=== PATIENT | male | born 1965 | race Caucasian/White ===

== ENCOUNTER 2019-07-22 08:32 | Emergency (ER) | payer BC ==
--- NOTE | 2019-07-22 10:02 | EDPHYS ---
Physician Documentation [facility] Name: Joey Spaulding Age: 54 yrs Sex: Male : 1965 Arrival Date: 07/22/2019 Time: 08:33 Bed 18 Private MD: ED Physician Ken Uribe HPI: 07/22 09:40 This 54 yrs old Male presents to ER via Ambulatory with complaints of Leg kb Pain. 09:40 The patient presents with pain, swelling, tenderness. The complaints affect the left kb foot. Context: The problem was sustained at home, the patient can fully bear weight, the patient is able to ambulate. Onset: The symptoms/episode began/occurred this morning. Modifying factors: The symptoms are alleviated by nothing, the symptoms are aggravated by weight bearing. Associated signs and symptoms: Pertinent positives: calf tenderness, swelling, warmth. Severity of symptoms: At their worst the symptoms were moderate, in the emergency department the symptoms are unchanged. The patient has not experienced similar symptoms in the past. The patient has not recently seen a physician. Pt reports he came in because he was concerned that he may have a blood clot. Reports pain, swelling and redness to medial aspect of left foot that radiates up to left ankle and left calf. Denies fever. Has had cellulitis in the past, but this feels different because there is pain. . Historical: - Allergies: 08:47 No Known Allergies; bp - Home Meds: 08:47 aspirin 81 mg Oral chew [Active]; losartan Oral [Active]; pravastatin oral oral bp [Active]; - PMHx: 08:47 Hyperlipidemia; Hypertension; CAD; bp - PSHx: 08:47 Heart stents; bp - Immunization history:: Adult Immunizations up to date. - Social history:: Smoking status: Patient/guardian denies using tobacco. - Ebola Screening: : No symptoms or risks identified at this time. ROS: 09:35 Constitutional: Negative for fever, chills, and weight loss, Neck: Negative for injury, kb pain, and swelling, Cardiovascular: Negative for chest pain, palpitations, and edema, Respiratory: Negative for shortness of breath, cough, wheezing, and pleuritic chest pain, Abdomen/GI: Negative for abdominal pain, nausea, vomiting, diarrhea, and constipation, Neuro: Negative for headache, weakness, numbness, tingling, and seizure. 09:35 MS/extremity: Positive for erythema, pain, tenderness, of the medial aspect of left foot. 09:35 Skin: Positive for erythema, swelling, of the medial aspect of left foot. Exam: 09:38 Constitutional: This is a well developed, well nourished patient who is awake, alert, kb and in no acute distress. Head/Face: Normocephalic, atraumatic. Neck: Trachea midline, no thyromegaly or masses palpated, and no cervical lymphadenopathy. Supple, full range of motion without nuchal rigidity, or vertebral point tenderness. No Meningismus. Chest/axilla: Normal chest wall appearance and motion. Nontender with no deformity. No lesions are appreciated. Cardiovascular: Regular rate and rhythm with a normal S1 and S2. No gallops, murmurs, or rubs. Normal PMI, no JVD. No pulse deficits. Respiratory: Lungs have equal breath sounds bilaterally, clear to auscultation and percussion. No rales, rhonchi or wheezes noted. No increased work of breathing, no retractions or nasal flaring. Abdomen/GI: Soft, non-tender, with normal bowel sounds. No distension or tympany. No guarding or rebound. No evidence of tenderness throughout. Skin: Warm, dry with normal turgor. Normal color with no rashes, no lesions, and no evidence of cellulitis. Neuro: Awake and alert, GCS 15, oriented to person, place, time, and situation. Cranial nerves II-XII grossly intact. Motor strength 5/5 in all extremities. Sensory grossly intact. Cerebellar exam normal. Normal gait. 09:38 Musculoskeletal/extremity: Extremities: grossly normal except: noted in the medial aspect of left foot: erythema, pain, swelling, tenderness, ROM: intact in all extremities, Circulation is intact in all extremities. Sensation intact. Weight bearing: able to fully bear weight. Vital Signs: 08:48 BP 129 / 79; Pulse 65; Resp 16; Temp 98.4; Pulse Ox 98% ; Weight 117.93 kg; Height 5 bp ft. 6 in. (167.64 cm); 09:53 BP 112 / 63; Pulse 61; Resp 16; Pulse Ox 100% ; bp 08:48 Body Mass Index 41.96 (117.93 kg, 167.64 cm) bp MDM: 08:48 Patient medically screened. kb 09:35 Data reviewed: vital signs, nurses notes. Data interpreted: Pulse oximetry: on room air kb is 98 %. Interpretation: normal. 10:00 Counseling: I had a detailed discussion with the patient and/or guardian regarding: the kb historical points, exam findings, and any diagnostic results supporting the discharge/admit diagnosis, radiology results, the need for outpatient follow up, a family practitioner, to return to the emergency department if symptoms worsen or persist or if there are any questions or concerns that arise at home. 07/22 09:20 Order name: Extremity Venous Uni Ltd ; Complete Time: 10:13 bp Administered Medications: 10:05 Drug: Clindamycin 300 mg Route: PO; bp 10:16 Follow up: Response: No adverse reaction bp Disposition: 07/22/19 10:01 Discharged to Home. Impression: Cellulitis of left lower limb. - Condition is Stable. - Discharge Instructions: Cellulitis, Adult, [place]. - Prescriptions for Clindamycin HCl 300 mg Oral Capsule - take 1 capsule by ORAL route every 6 hours for 10 days; 40 capsule. - Medication Reconciliation Form, Thank You Letter, Antibiotic Education, Prescription Opioid Use, Work release form form. - Follow up: Emergency Department; When: As needed; Reason: Worsening of condition. Follow up: Private Physician; When: 2 - 3 days; Reason: Recheck today's complaints, Continuance of care, Re-evaluation by your physician. Addendum: 07/23/2019 20:49 Co-signature as Attending Physician, Ken Uribe MD I agree with the assessment and k dr plan of care. Signatures: Dispatcher [employer] EDAK Zully Marcus, RELEASE SPECIALIST-C RELEASE SPECIALIST-Ckb Ken Uribe MD MD [facility] Adebayo Sutherland RN RN bp Corrections: (The following items were deleted from the chart) 07/22 10:16 10:01 07/22/2019 10:01 Discharged to Home. Impression: Cellulitis of left lower limb. bp Condition is Stable. Forms are Medication Reconciliation Form, Thank You Letter, Antibiotic Education, Prescription Opioid Use. Follow up: Emergency Department; When: As needed; Reason: Worsening of condition. Follow up: Private Physician; When: 2 - 3 days; Reason: Recheck today's complaints, Continuance of care, Re-evaluation by your physician. kb
--- NOTE | 2019-07-22 10:02 | ER ---
Nurse's Notes [facility] Name: Joey Spaulding Age: 54 yrs Sex: Male : 1965 Arrival Date: 07/22/2019 Time: 08:33 Bed 18 Private MD: Diagnosis: Cellulitis of left lower limb Presentation: 07/22 08:35 Presenting complaint: Patient states: LEFT MEDIAL ANKLE SWELLING SINCE Y/D. Transition bp of care: patient was not received from another setting of care. Onset of symptoms is unknown. Risk Assessment: Do you want to hurt yourself or someone else? Patient reports no desire to harm self or others. Initial Sepsis Screen: Does the patient meet any 2 criteria? No. Patient's initial sepsis screen is negative. Does the patient have a suspected source of infection? No. Patient's initial sepsis screen is negative. Care prior to arrival: None. 08:35 Method Of Arrival: Ambulatory bp 08:35 Acuity: MARISA 3 bp Triage Assessment: 08:47 General: Appears in no apparent distress. comfortable, obese, Behavior is cooperative, bp appropriate for age, anxious. Pain: Complains of pain in left medial ankle and medial aspect of left foot. EENT: No deficits noted. Neuro: No deficits noted. Cardiovascular: No deficits noted. Respiratory: No deficits noted. GI: No signs and/or symptoms were reported involving the gastrointestinal system. : No signs and/or symptoms were reported regarding the genitourinary system. Derm: No deficits noted. Musculoskeletal: Swelling present in left medial ankle and medial aspect of left foot. Historical: - Allergies: 08:47 No Known Allergies; bp - Home Meds: 08:47 aspirin 81 mg Oral chew [Active]; losartan Oral [Active]; pravastatin oral oral bp [Active]; - PMHx: 08:47 Hyperlipidemia; Hypertension; CAD; bp - PSHx: 08:47 Heart stents; bp - Immunization history:: Adult Immunizations up to date. - Social history:: Smoking status: Patient/guardian denies using tobacco. - Ebola Screening: : No symptoms or risks identified at this time. Screenin:49 Abuse screen: Denies threats or abuse. Denies injuries from another. Nutritional bp screening: No deficits noted. Tuberculosis screening: No symptoms or risk factors identified. Fall Risk None identified. Assessment: 08:49 General: SEE TRIAGE NOTE. bp 09:53 Reassessment: VENOUS U/S COMPLETED, RESULTS PENDING. bp 10:15 Reassessment: PT D/C HOME VIA W/C WITH FAMILY, DX WITH CELLULITIS. bp Vital Signs: 08:48 BP 129 / 79; Pulse 65; Resp 16; Temp 98.4; Pulse Ox 98% ; Weight 117.93 kg; Height 5 bp ft. 6 in. (167.64 cm); 09:53 BP 112 / 63; Pulse 61; Resp 16; Pulse Ox 100% ; bp 08:48 Body Mass Index 41.96 (117.93 kg, 167.64 cm) bp ED Course: 08:33 Patient arrived in ED. as 08:34 Adebayo Sutherland, RN is Primary Nurse. bp 08:45 Triage completed. bp 08:47 Zully Marcus FNP-C is PHCP. kb 08:48 Ken Uribe MD is Attending Physician. kb 08:48 Arm band placed on. bp 08:49 Patient has correct armband on for positive identification. Bed in low position. Call bp light in reach. Side rails up X2. Adult w/ patient. 09:59 Extremity Venous Uni Ltd US In Process Unspecified. EDMS 10:15 No provider procedures requiring assistance completed. Patient did not have IV access bp during this emergency room visit. Administered Medications: 10:05 Drug: Clindamycin 300 mg Route: PO; bp 10:16 Follow up: Response: No adverse reaction bp Outcome: 10:01 Discharge ordered by . kb 10:15 Discharged to home via wheelchair, with family. bp 10:15 Condition: stable 10:15 Discharge instructions given to patient, Instructed on discharge instructions, follow up and referral plans. medication usage, Demonstrated understanding of instructions, follow-up care, medications, Prescriptions given X 1. 10:16 Patient left the ED. bp Signatures: Dispatcher [employer] EDMS Zully Marcus FNP-C FNP-Trina Reis as Adebayo Sutherland, RN RN bp
[2019-07-22] MEDS ORDERED: CLINDAMYCIN HCL 150 MG CAP ONE (10:08)
--- NOTE | 2019-07-22 10:08 | RAD REPORT ---
EXAM DESCRIPTION: US - Extremity Venous Uni Ltd - 07/22/2019 9:57 am CLINICAL HISTORY: SWELLING Leg swelling and edema. COMPARISON: Extremity Venous Uni Ltd dated 07/08/2018 FINDINGS: Left lower extremity venous system was interrogated with Doppler technique. Normal flow, c ompressibility and augmentation was noted. There is no DVT present. IMPRESSION: No evidence of left lower extremity deep venous thrombosis.
[2019-07-22 10:23] VITALS: TEMP 98.4
[2019-07-22 10:24] VITALS: BP 112/63; O2SAT 100
== END 2019-07-22 10:16 | disposition home or self-care (01) ==
LOC: ER 08:32
DX: L03.116 Cellulitis of left lower limb (principal); I10 Essential (primary) hypertension; Z95.5 Presence of coronary angioplasty implant and graft
CPT/HCPCS: 93971; 99283

== ENCOUNTER 2019-07-28 12:24 | Emergency (ER) | payer BC ==
[2019-07-28] MEDS ORDERED: CLINDAMYCIN 600MG/D5W 600 MG/50 ML BAG IV ONE (13:42)
[2019-07-28] MEDS ORDERED: NA CHLORIDE 0.9% 1,000 ML ONE (13:42)
[2019-07-28] MEDS ORDERED: SMZ./TMP. 800/160 MG TABLET ONE (13:42)
[2019-07-28 13:55] LABS: Absolute Lymphocytes (CBC) 1.9 K/uL (0.7-4.9); Basophils % 0.8 % (0-1.3); Hematocrit 37.1 % (39.6-49.0); Lymphocytes % 24.6 % (15.3-44.8); MPV 9.3 fL (7.6-11.3)
[2019-07-28 14:08] LABS: Protime INR 1.09
[2019-07-28] MEDS ORDERED: FAMOTIDINE 20 MG/2 ML VIAL IV ONE (14:16)
[2019-07-28 14:25] LABS: Albumin 3.3 g/dL (3.4-5.0); Bilirubin Direct 0.1 mg/dL (0-0.2); Bilirubin Total 0.5 mg/dL (0.2-1.0); Potassium 3.8 mmol/L (3.5-5.1); Protein, Total 7.1 g/dL (6.4-8.2)
[2019-07-28] MEDS ORDERED: PANTOPRAZOLE 40 MG INJ ONE (14:40)
--- NOTE | 2019-07-28 14:58 | RAD REPORT ---
EXAM DESCRIPTION: CTAbdomen Pelvis W Contrast - 07/28/2019 2:49 pm CLINICAL HISTORY: Abdominal pain. gi bleed COMPARISON: No comparisons TECHNIQUE: Biphasic CT imaging of the abdomen and pelvis was performed with 100 ml non-ionic IV cont rast. All CT scans are performed using dose optimization technique as appropriate and may include automated exposure control or mA/KV adjustment according to patient size. FINDINGS: The lung bases are clear.Gastric banding is noted. The liver demonstrates small low-density lesion in the right lobe measuring 10 mm. Poorly defined sma ll arterial phase enhancing lesion is seen the inferior posterior right measuring 12 mm. No aggressiv e liver lesion suspected. No intra or extrahepatic biliary dilatation. The spleen, pancreas, adrenal glands are normal. Punctate calculus is present mid-pole left kidney without hydronephrosis. No right -sided stone or hydronephrosis. No bowel obstruction, free air, free fluid or abscess. Colonic diverticulosis is present particularly in the sigmoid colon. There is trace inflammatory changes in the surrounding fat suggesting a very e rose/mild acute diverticulitis. The appendix is normal. No evidence of significant lymphadenopathy. No suspicious bony findings. IMPRESSION: Early/ very mild acute sigmoid diverticulitis is possible. Punctate left renal calculus without hydronephrosis.
[2019-07-28] MEDS ORDERED: PANTOPRAZOLE INJ 80 MG in NA CHLORIDE 0.9% 250 ML IV SCH (15:00)
--- NOTE | 2019-07-28 23:42 | EDPHYS ---
Physician Documentation [facility] Name: Joey Spaulding Age: 54 yrs Sex: Male : 1965 Arrival Date: 07/28/2019 Time: 12:27 Bed 19 Private MD: Humaira Bradley F ED Physician Sigrid Price HPI: 07/28 13:58 This 54 yrs old Male presents to ER via Ambulatory with complaints of Rectal ma2 Bleeding. 13:58 The patient presents to the emergency department with bleeding from the rectum/anus. ma2 Onset: The symptoms/episode began/occurred gradually, 1 day(s) ago. Associate signs and symptoms: Pertinent negatives: abdominal pain, diarrhea, vomiting. The patient has not experienced similar symptoms in the past. takes asa has CAD, never had gi bleeding before here with bright red bleeding per rectum . Historical: - Allergies: 12:39 No Known Allergies; aa5 - Home Meds: 12:39 aspirin 81 mg Oral chew [Active]; losartan Oral [Active]; pravastatin Oral [Active]; aa5 - PMHx: 12:39 CAD; Hyperlipidemia; Hypertension; aa5 - PSHx: 12:39 Heart stents; aa5 - Immunization history:: Flu vaccine is not up to date. - Social history:: Smoking status: Patient/guardian denies using tobacco, Patient/guardian denies using alcohol, street drugs, The patient lives with family. - Ebola Screening: : No symptoms or risks identified at this time. - Family history:: not pertinent. ROS: 13:58 Constitutional: Negative for fever, chills, and weight loss, MS/Extremity: Negative for ma2 injury and deformity. 13:58 All other systems are negative. Exam: 13:58 Constitutional: This is a well developed, well nourished patient who is awake, alert, ma2 and in no acute distress. Head/Face: Normocephalic, atraumatic. Eyes: Pupils equal round and reactive to light, extra-ocular motions intact. Lids and lashes normal. Conjunctiva and sclera are non-icteric and not injected. Cornea within normal limits. Periorbital areas with no swelling, redness, or edema. ENT: Nares patent. No nasal discharge, no septal abnormalities noted. Tympanic membranes are normal and external auditory canals are clear. Oropharynx with no redness, swelling, or masses, exudates, or evidence of obstruction, uvula midline. Mucous membranes moist. Neck: Trachea midline, no thyromegaly or masses palpated, and no cervical lymphadenopathy. Supple, full range of motion without nuchal rigidity, or vertebral point tenderness. No Meningismus. Chest/axilla: Normal chest wall appearance and motion. Nontender with no deformity. No lesions are appreciated. Cardiovascular: Regular rate and rhythm with a normal S1 and S2. No gallops, murmurs, or rubs. Normal PMI, no JVD. No pulse deficits. Respiratory: Lungs have equal breath sounds bilaterally, clear to auscultation and percussion. No rales, rhonchi or wheezes noted. No increased work of breathing, no retractions or nasal flaring. Abdomen/GI: Soft, non-tender, with normal bowel sounds. No distension or tympany. No guarding or rebound. No evidence of tenderness throughout. MS/ Extremity: has left leg cellulitis medial part of ankle, mildly tender red 3x5 cm no abscess, otherwise Pulses equal, no cyanosis. Neurovascular intact. Full, normal range of motion. Vital Signs: 12:39 BP 134 / 91; Pulse 58; Resp 16 S; Temp 98.5(O); Pulse Ox 98% on R/A; Weight 117.93 kg aa5 (R); Height 5 ft. 6 in. (167.64 cm) (R); Pain 0/10; 15:20 BP 136 / 89; Pulse 59; Resp 18; Temp 98; Pulse Ox 100% on R/A; mg2 12:39 Body Mass Index 41.96 (117.93 kg, 167.64 cm) aa5 MDM: 13:13 Patient medically screened. ma2 13:58 Differential diagnosis: Lower GI bleeding, + left leg cellulitis, has no active ma2 bleeding now, HB is normal. Data reviewed: vital signs, nurses notes. Counseling: I had a detailed discussion with the patient and/or guardian regarding: the historical points, exam findings, and any diagnostic results supporting the discharge/admit diagnosis, the presence of at least one elevated blood pressure reading (>120/80) during this emergency department visit, the need for outpatient follow up. Response to treatment: There is no appreciated change of the patient's symptoms at this time. 13:58 ED course: no gi service available in our hospital, will transfer for higher level of [facility] care . 07/28 12:54 Order name: IV Saline Lock; Complete Time: 13:09 mg2 07/28 12:54 Order name: Labs collected and sent; Complete Time: 13:09 mg2 07/28 14:26 Order name: NPO; Complete Time: 14:30 ma2 07/28 14:31 Order name: Labs - recollect needed; Complete Time: 15:18 bd Administered Medications: 14:03 Drug: Clindamycin 600 mg Route: IVPB; Infused Over: 30 mins; Site: left forearm; mg2 15:19 Follow up: Response: No adverse reaction; IV Status: Completed infusion mg2 14:03 Drug: Bactrim 160 mg-800 mg (DS) 160 mg Route: PO; mg2 14:21 Follow up: Response: No adverse reaction mg2 14:04 Drug: NS 0.9% 1000 ml Route: IV; Rate: 1 bolus; Site: left forearm; mg2 15:19 Follow up: Response: No adverse reaction; IV Status: Completed infusion; IV Intake: mg2 1000ml 14:20 Drug: Pepcid 20 mg Route: IVP; Site: left forearm; mg2 15:19 Follow up: Response: No adverse reaction mg2 15:16 Drug: Pantoprazole 8 mg/hr Route: IV; Rate: 25 ml/hr; Site: left forearm; mg2 15:40 Follow up: Response: No adverse reaction; IV Status: Infusion continued upon transfer mg2 15:17 Drug: Pantoprazole 40 mg Route: IVP; Site: left forearm; mg2 15:18 Follow up: Response: No adverse reaction mg2 Disposition: 07/28/19 14:[address] [facility]. Diagnosis is Gastrointestinal hemorrhage, unspecified. - Reason for transfer: Higher level of care. - Accepting physician is Dr. Steinberg. - Condition is Stable. - Problem is new. - Symptoms are unchanged. Signatures: Tricia Turner Audri RN RN aa5 Sigrid Price MD MD ma2 Shorty Wong RN RN mg2 Corrections: (The following items were deleted from the chart) 14:26 14:03 07/28/2019 14:[address] [facility]. Diagnosis is ma2 Gastrointestinal hemorrhage, unspecified. Reason for transfer: Higher level of care. Accepting physician is [facility] . Condition is Stable. Problem is new. Symptoms are unchanged. ma2 15:40 14:26 07/28/2019 14:[address] [facility]. Diagnosis is mg2 Gastrointestinal hemorrhage, unspecified. Reason for transfer: Higher level of care. Accepting physician is Dr. Steinberg. Condition is Stable. Problem is new. Symptoms are unchanged. ma2
--- NOTE | 2019-07-28 23:43 | ER ---
Nurse's Notes [facility] Name: Joey Spaulding Age: 54 yrs Sex: Male : 1965 Arrival Date: 07/28/2019 Time: 12:27 Bed 19 Private MD: Humaira Bradley F Diagnosis: Gastrointestinal hemorrhage, unspecified Presentation: 07/28 12:36 Presenting complaint: Patient states: "I was seen here for cellulitis of my leg and aa5 they said to take anti-inflammatories so I've been taking ibuprofen". Pt also reports taking daily ASA. Pt reports blood in the stool that began last night. Pt reports abd discomfort, denies vomiting. Transition of care: patient was not received from another setting of care. Onset of symptoms was July 2019. Risk Assessment: Do you want to hurt yourself or someone else? Patient reports no desire to harm self or others. Initial Sepsis Screen: Does the patient meet any 2 criteria? No. Patient's initial sepsis screen is negative. Does the patient have a suspected source of infection? No. Patient's initial sepsis screen is negative. Care prior to arrival: None. 12:36 Acuity: MARISA 3 aa5 12:36 Method Of Arrival: Ambulatory aa5 Historical: - Allergies: 12:39 No Known Allergies; aa5 - Home Meds: 12:39 aspirin 81 mg Oral chew [Active]; losartan Oral [Active]; pravastatin Oral [Active]; aa5 - PMHx: 12:39 CAD; Hyperlipidemia; Hypertension; aa5 - PSHx: 12:39 Heart stents; aa5 - Immunization history:: Flu vaccine is not up to date. - Social history:: Smoking status: Patient/guardian denies using tobacco, Patient/guardian denies using alcohol, street drugs, The patient lives with family. - Ebola Screening: : No symptoms or risks identified at this time. - Family history:: not pertinent. Screenin:38 Abuse screen: Denies threats or abuse. Denies injuries from another. Nutritional mg2 screening: No deficits noted. Tuberculosis screening: No symptoms or risk factors identified. Fall Risk IV access (20 points). Assessment: 13:37 General: Appears in no apparent distress. comfortable, Behavior is calm, cooperative. mg2 Pain: Complains of pain in abdomen Pain does not radiate. Pain currently is 2 out of 10 on a pain scale. Quality of pain is described as aching, Pain began gradually, 1 day ago. Is intermittent. Neuro: Level of Consciousness is awake, alert, obeys commands, Oriented to person, place, time, situation. Cardiovascular: Capillary refill < 3 seconds Patient's skin is warm and dry. Respiratory: Airway is patent Respiratory effort is even, unlabored, Respiratory pattern is regular, symmetrical. GI: Reports rectal bleeding. : No signs and/or symptoms were reported regarding the genitourinary system. EENT: No signs and/or symptoms were reported regarding the EENT system. Derm: Skin is intact, is healthy with good turgor, Skin is pink, warm \\T\\ dry. normal. Musculoskeletal: Circulation, motion, and sensation intact. Capillary refill < 3 seconds. 14:21 Reassessment: Patient appears in no apparent distress at this time. Musculoskeletal: mg2 Swelling present in left leg. 14:21 Reassessment: patient was informed about the plan for transfer. patient agreed. mg2 15:20 Reassessment: report called to [facility] [place] [facility]. mg2 15:39 Reassessment: patient picked up by EMS. patient pain-free, iv intact with protonix mg2 drip ongoing. Vital Signs: 12:39 BP 134 / 91; Pulse 58; Resp 16 S; Temp 98.5(O); Pulse Ox 98% on R/A; Weight 117.93 kg aa5 (R); Height 5 ft. 6 in. (167.64 cm) (R); Pain 0/10; 15:20 BP 136 / 89; Pulse 59; Resp 18; Temp 98; Pulse Ox 100% on R/A; mg2 12:39 Body Mass Index 41.96 (117.93 kg, 167.64 cm) aa5 ED Course: 12:27 Patient arrived in ED. ag5 12:28 Humaira Bradley MD is Private Physician. ag5 12:36 Arm band placed on. aa5 12:38 Triage completed. aa5 13:10 No provider procedures requiring assistance completed. Inserted saline lock: 20 gauge mg2 in left forearm, using aseptic technique. Blood collected. 13:13 Sigrid Price MD is Attending Physician. ma2 13:25 Shorty Wong RN is Primary Nurse. mg2 13:38 Patient has correct armband on for positive identification. Pulse ox on. NIBP on. Door mg2 closed. Warm blanket given. 15:39 Patient transferred, IV remains in place. mg2 Administered Medications: 14:03 Drug: Clindamycin 600 mg Route: IVPB; Infused Over: 30 mins; Site: left forearm; mg2 15:19 Follow up: Response: No adverse reaction; IV Status: Completed infusion mg2 14:03 Drug: Bactrim 160 mg-800 mg (DS) 160 mg Route: PO; mg2 14:21 Follow up: Response: No adverse reaction mg2 14:04 Drug: NS 0.9% 1000 ml Route: IV; Rate: 1 bolus; Site: left forearm; mg2 15:19 Follow up: Response: No adverse reaction; IV Status: Completed infusion; IV Intake: mg2 1000ml 14:20 Drug: Pepcid 20 mg Route: IVP; Site: left forearm; mg2 15:19 Follow up: Response: No adverse reaction mg2 15:16 Drug: Pantoprazole 8 mg/hr Route: IV; Rate: 25 ml/hr; Site: left forearm; mg2 15:40 Follow up: Response: No adverse reaction; IV Status: Infusion continued upon transfer mg2 15:17 Drug: Pantoprazole 40 mg Route: IVP; Site: left forearm; mg2 15:18 Follow up: Response: No adverse reaction mg2 Intake: 15:19 IV: 1000ml; Total: 1000ml. mg2 Outcome: 14:03 ER care complete, transfer ordered by . renetta 15:40 Transferred by [facility] to [facility], Transfer form completed. mg2 15:40 Condition: stable 15:40 Instructed on the need for transfer, Demonstrated understanding of instructions. 15:40 Patient left the ED. mg2 Signatures: Elisa Garza, RN RN aa5 Sigrid Price MD MD ma2 Shorty Wong RN RN mg2 Jenna Gimenez 5
[2019-07-29 00:26] VITALS: BP 136/89; TEMP 98; O2SAT 100
== END 2019-07-28 15:40 | disposition short-term general hospital (02) ==
LOC: ER 12:24
DX: K92.2 Gastrointestinal hemorrhage, unspecified (principal); I10 Essential (primary) hypertension; I25.10 Atherosclerotic heart disease of native coronary artery without angina pectoris; E78.5 Hyperlipidemia, unspecified; Z79.82 Long term (current) use of aspirin
CPT/HCPCS: 96365; 87040 ×2; 85025; 80048; 36415; 86900; 86850; 85610; 86901; 80076; 83605; 83690; 74177; 96375; 99285; Q9967; C9113 ×2; J7030 ×2

== ENCOUNTER 2021-12-10 04:12 | Emergency (ER) | payer BC ==
--- OUTSIDE RECORDS SUMMARY | 2021-12-10 04:17 | XMS REPORT | Continuity of Care Document ---
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 2021-08-31 TETANUS SHOT (ADULT) [place] [facility] Test 07:15:15 [code = TETANUS SHOT of Medi cine (ADULT)] Future Scheduled 2021-08-30 COVID-19 Vaccine (1) [place] [facility] Test 13:59:43 [code = COVID-19 of Medicine Vaccine (1)] Future Scheduled 2021-08-30 Hepatitis C screening [employer] Test 13:59:43 (procedure) [code = of Medic ine 287060405] Future Scheduled 2021-08-30 Human immunodeficiency [facility] Test 13:59:43 virus screening of Medicine (procedure) [code = 501436887] Future Scheduled 2021-08-30 ZOSTER VACCINE (1 of 2) [employer] Test 13:59:43 [code = ZOSTER VACCINE of Me dicine (1 of 2)] Future Scheduled 2021-08-30 FLU VACCINE > 6 MONTHS [employer] Test 13:59:43 [code = FLU VACCINE > 6 of M edicine MONTHS] Future Scheduled 2021-08-30 BMI FOLLOW UP PLAN [employer] Test 13:59:43 [code = BMI FOLLOW UP of Med icine PLAN] Future Scheduled 2021-08-30 Screening for malignant [facility] [employer] Test 13:59:43 neoplasm of colon of Medicin e (procedure) [code = 586005527] Future Scheduled 2021-08-30 TETANUS SHOT (ADULT) [place] [facility] Test 13:59:43 [code = TETANUS SHOT of Medi cine (ADULT)] Future Scheduled 2021-08-07 BMI FOLLOW UP PLAN [facility] [employer] Test 14:20:36 [code = BMI FOLLOW UP of Med icine PLAN] Future Scheduled 2021-08-07 COVID-19 Vaccine (1) [facility] Test 14:18:49 [code = COVID-19 of Medicine Vaccine (1)] Future Scheduled 2021-08-07 Hepatitis C screening Ba [facility] Test 14:18:49 (procedure) [code = of Medic ine 801134186] Future Scheduled 2021-08-07 Human immunodeficiency [facility] Test 14:18:49 virus screening of Medicine (procedure) [code = 921493170] Future Scheduled 2021-08-07 ZOSTER VACCINE (1 of 2) [facility] Test 14:18:49 [code = ZOSTER VACCINE of Me dicine (1 of 2)] Future Scheduled 2021-08-07 FLU VACCINE > 6 MONTHS [facility] Test 14:18:49 [code = FLU VACCINE > 6 of M edicine MONTHS] Future Scheduled 2021-08-07 Screening for malignant [facility] Test 14:18:49 neoplasm of colon of Medicin e (procedure) [code = 222977327] Future Scheduled 2021-08-07 TETANUS SHOT (ADULT) [facility] Test 14:18:49 [code = TETANUS SHOT of Medi cine (ADULT)] Diagnostic Test 2021-05-03 CT CHEST W ABD/PELVIS Expected: [facility] Pending 00:00:00 WO/W [code = 02367] 05/03/2021, of Medic ine Expires: 04/26/2022 Future Scheduled 2021-05-03 CT CHEST W ABD/PELVIS Expected: [facility] Test 00:00:00 WO/W [code = 92785] 05/03/2021, of Medic ine Expires: 04/26/2022 Future Scheduled 2021-04-30 COVID-19 Vaccine (1) [facility] Test 21:50:03 [code = COVID-19 of Medicine Vaccine (1)] Future Scheduled 2021-04-30 Hepatitis C screening Ba [facility] Test 21:50:03 (procedure) [code = of Medic ine 855177534] Future Scheduled 2021-04-30 Human immunodeficiency [facility] [employer] Test 21:50:03 virus screening of Medicine (procedure) [code = 182451641] Future Scheduled 2021-04-30 ZOSTER VACCINE (1 of 2) [facility] Test 21:50:03 [code = ZOSTER VACCINE of Me dicine (1 of 2)] Future Scheduled 2021-04-30 FLU VACCINE > 6 MONTHS [facility] [employer] Test 21:50:03 [code = FLU VACCINE > 6 of M edicine MONTHS] Future Scheduled 2021-04-30 BMI FOLLOW UP PLAN [facility] [place] Test 21:50:03 [code = BMI FOLLOW UP of Med icine PLAN] Future Scheduled 2021-04-30 Screening for malignant [facility] Test 21:50:03 neoplasm of colon of Medicin e (procedure) [code = 850968657] Future Scheduled 2021-04-30 TETANUS SHOT (ADULT) [facility] Test 21:50:03 [code = TETANUS SHOT of Medi cine (ADULT)] Future Scheduled 2021-04-30 COVID-19 Vaccine (1) [facility] Test 21:50:03 [code = COVID-19 of Medicine Vaccine (1)] Future Scheduled 2021-04-30 Hepatitis C screening [facility] Test 21:50:03 (procedure) [code = of Medic ine 756991400] Future Scheduled 2021-04-30 Human immunodeficiency [facility] Test 21:50:03 virus screening of Medicine (procedure) [code = 521263679] Future Scheduled 2021-04-30 ZOSTER VACCINE (1 of 2) [facility] Test 21:50:03 [code = ZOSTER VACCINE of Me dicine (1 of 2)] Future Scheduled 2021-04-30 FLU VACCINE > 6 MONTHS [facility] Test 21:50:03 [code = FLU VACCINE > 6 of M edicine MONTHS] Future Scheduled 2021-04-30 BMI FOLLOW UP PLAN [facility] [place] Test 21:50:03 [code = BMI FOLLOW UP of Med icine PLAN] Future Scheduled 2021-04-30 Screening for malignant [facility] Test 21:50:03 neoplasm of colon of Medicin e (procedure) [code = 307430599] Future Scheduled 2021-04-30 TETANUS SHOT (ADULT) [place] [facility] Test 21:50:03 [code = TETANUS SHOT of Medi cine (ADULT)] Future Scheduled 2021-02-02 BMI FOLLOW UP PLAN [facility] Test 10:51:02 [code = BMI FOLLOW UP of Med icine PLAN] Future Scheduled 2021-02-02 COVID-19 Vaccine (1) [place] [facility] [employer] Test 10:42:11 [code = COVID-19 of Medicine Vaccine (1)] Future Scheduled 2021-02-02 Hepatitis C screening [employer] Test 10:42:11 (procedure) [code = of Medic ine 015825704] Future Scheduled 2021-02-02 Human immunodeficiency [facility] [employer] Test 10:42:11 virus screening of Medicine (procedure) [code = 395186853] Future Scheduled 2021-02-02 ZOSTER VACCINE (1 of 2) [facility] [employer] Test 10:42:11 [code = ZOSTER VACCINE of Me dicine (1 of 2)] Future Scheduled 2021-02-02 FLU VACCINE > 6 MONTHS [facility] [employer] Test 10:42:11 [code = FLU VACCINE > 6 of M edicine MONTHS] Future Scheduled 2021-02-02 Screening for malignant [facility] Test 10:42:11 neoplasm of colon of Medicin e (procedure) [code = 362010285] Future Scheduled 2021-02-02 TETANUS SHOT (ADULT) [facility] Test 10:42:11 [code = TETANUS SHOT of Medi cine (ADULT)] Future Scheduled 2020-12-30 COVID-19 Vaccine (1) [facility] [employer] Test 14:19:42 [code = COVID-19 of Medicine Vaccine (1)] Future Scheduled 2020-12-30 Hepatitis C screening [facility] Test 14:19:42 (procedure) [code = of Medic ine 300918280] Future Scheduled 2020-12-30 Human immunodeficiency [facility] [employer] Test 14:19:42 virus screening of Medicine (procedure) [code = 292244686] Future Scheduled 2020-12-30 ZOSTER VACCINE (1 of 2) [facility] [employer] Test 14:19:42 [code = ZOSTER VACCINE of Me dicine (1 of 2)] Future Scheduled 2020-12-30 FLU VACCINE > 6 MONTHS [facility] [employer] Test 14:19:42 [code = FLU VACCINE > 6 of M edicine MONTHS] Future Scheduled 2020-12-30 BMI FOLLOW UP PLAN [facility] Test 14:19:42 [code = BMI FOLLOW UP of Med icine PLAN] Future Scheduled 2020-12-30 Screening for malignant [facility] [employer] Test 14:19:42 neoplasm of colon of Medicin e (procedure) [code = 228341233] Future Scheduled 2020-12-30 TETANUS SHOT (ADULT) [place] [facility] [employer] Test 14:19:42 [code = TETANUS SHOT of Medi cine (ADULT)] Future Scheduled COLON CANCER SCREENING: [facility] [employer] Test COLONOSCOPY [code = of Medic ine COLON CANCER SCREENING: COLONOSCOPY] Future Scheduled BMI FOLLOW UP PLAN [employer] Test [code = BMI FOLLOW UP of Med icine PLAN] Future Scheduled HEPATITIS C SCREENING [employer] Test [code = HEPATITIS C of Medic ine SCREENING] Future Scheduled HIV SCREENING [code = [employer] [facility] HIV SCREENING] of Medicine Future Scheduled TETANUS SHOT (ADULT) [place] [facility] Test [code = TETANUS SHOT of Medi cine (ADULT)] Future Scheduled BMI FOLLOW UP PLAN [employer] Test [code = BMI FOLLOW UP of Med icine PLAN] Future Scheduled HEPATITIS C SCREENING [employer] Test [code = HEPATITIS C of Medic ine SCREENING] Future Scheduled HIV SCREENING [code = [employer] [facility] HIV SCREENING] of Medicine Future Scheduled ZOSTER VACCINE (1 of 2) [facility] [employer] Test [code = ZOSTER VACCINE of Me dicine (1 of 2)] Future Scheduled FLU VACCINE > 6 MONTHS [employer] Test [code = FLU VACCINE > 6 of M edicine MONTHS] Future Scheduled COLON CANCER SCREENING: [facility] [employer] Test COLONOSCOPY [code = of Medic ine COLON CANCER SCREENING: COLONOSCOPY] Future Scheduled TETANUS SHOT (ADULT) [place] [facility] Test [code = TETANUS SHOT of Medi cine (ADULT)] Future Scheduled COLON CANCER SCREENING: [facility] [employer] Test COLONOSCOPY [code = of Medic ine COLON CANCER SCREENING: COLONOSCOPY] Future Scheduled BMI FOLLOW UP PLAN [employer] Test [code = BMI FOLLOW UP of Med icine PLAN] Future Scheduled HEPATITIS C SCREENING [employer] Test [code = HEPATITIS C of Medic ine SCREENING] Future Scheduled HIV SCREENING [code = [employer] [facility] HIV SCREENING] of Medicine Future Scheduled TETANUS SHOT (ADULT) [place] [facility] [employer] Test [code = TETANUS SHOT of Medi cine (ADULT)] Future Scheduled COLON CANCER SCREENING: [facility] [employer] Test COLONOSCOPY [code = of Medic ine COLON CANCER SCREENING: COLONOSCOPY] Future Scheduled BMI FOLLOW UP PLAN [employer] Test [code = BMI FOLLOW UP of Med icine PLAN] Future Scheduled HEPATITIS C SCREENING [employer] Test [code = HEPATITIS C of Medic ine SCREENING] Future Scheduled HIV SCREENING [code = [employer] [facility] HIV SCREENING] of Medicine Future Scheduled TETANUS SHOT (ADULT) [place] [facility] Test [code = TETANUS SHOT of Medi cine (ADULT)] Future Scheduled CT CHEST W CONTRAST 1 Occurrences [place] [facility] [employer] Test [code = 87860-3] starting of Medicine 04/06/2020 until 11/04/2020 Future Scheduled COLONOSCOPY W MAC GI 1 Occurrences [employer] Test DEPT [code = 16218] starting of Medic ine 08/26/2019 until 02/26/2020 Encounters Start End Encounter Admission Attending Care Care Encounter Source Date/Time Date/Time Type Type Clinicians Facility Department ID 2021-05-13 Outpatient MATTAR, [facility] Surgery [id number] SLE 23:42:39 SAMER 2021-05-13 Outpatient OTBRAD, [facility] Surgery [id number] [facility] 15:16:21 [facility] 2021-05-09 Outpatient OTAN, [facility] Surgery [id number] [facility] 14:01:06 [facility] 2021-12-01 2021-12-01 Outpatient EL ZULEYKA, [facility] Surgery [id number] [facility] 05:10:00 14:45:00 ADRIANA 2021-11-29 2021-11-29 Outpatient PHILLY GARDINER [facility] [id number] [facility] 08:05:14 23:59:00 ADRIANA 2021-11-29 2021-11-29 Outpatient [facility] [id number] [facility] 00:00:00 23:59:00 Juanjose marquez of Medicin e 2021-11-29 2021-11-29 Outpatient EL [facility] [id number] [facility] 00:00:00 00:00:00 2021-11-29 2021-11-29 Outpatient PHILLY GARDINER [facility] [id number] SLE 00:00:00 00:00:00 ADRIANA 2021-11-29 2021-11-29 Outpatient PHILLY TOMOR [facility] [id number] SLE 00:00:00 00:00:00 ADRIANA 2021-09-28 2021-09-28 Office SHANNAN GARDINER 1.2.840.114 [id number] [facility] 08:29 15:19:37 Visit ADRIANA AMBULATOR 350.1.13.21 College Y 0.2.7.2.686 of [id number] [facility] evans 815 e 2021-08-30 2021-08-30 Office ZEYAD FLORES [facility] 1.2.840.114 [id number] [facility] 15:18:26 16:50:36 Visit AMBULATOR 350.1.13.21 College Y 0.2.7.2.686 of [id number] [facility] evans 800 e 2021-08-30 2021-08-30 Office [facility] 1.2.840.114 [id number] [facility] 13:27:27 14:58:37 Visit TANNAZ Franco 350.1.13.21 Co llege 0.2.7.2.686 of [id number] [facility] evans 504 e 2021-08-11 2021-08-11 Outpatient JOSHUA [facility] [id number] [facility] 07:52:27 23:59:00 [facility] 2021-08-11 2021-08-11 Outpatient JOSHUA [facility] [id number] SLE 07:52:20 23:59:00 [facility] 2021-08-07 2021-08-07 Office ARSENIO CABELLO 1.2.840.[id number] [place] [address] 13:59:31 15:09:35 Visit SAMER AMBULATOR 350.1.13.21 College Y 0.2.7.2.686 of [id number] [facility] evans 805 e 2021-05-17 2021-05-17 Outpatient ARSENIO LEWISSAN [facility] [id number] [facility] 13:59:14 14:15:27 T[facility]NNY Colleg [facility] of Medicin e 2021-05-08 2021-05-08 Outpatient JOSHUA [facility] [id number] SLE 14:09:03 23:59:00 [facility] 2021-05-08 2021-05-08 Outpatient PHILLY LEWIS [facility] [id number] SLE 14:08:56 14:08:56 [facility] 2021-04-26 2021-04-26 [facility] 1.2.840.114 [id number] [facility] 12:39:49 14:34:50 Visit Tannhai Franco 350.1.13.21 Co llege 0.2.7.2.686 of [id number] [facility] evans 530 e 2021-02-02 2021-02-02 Office SHANNAN Cabello 1.2.840.114 [id number] [facility] 10:26:09 11:07:53 Visit Samer Gamil AMBULATOR 350.1.13.21 College Y 0.2.7.2.686 of [id number] [facility] evans 805 e 2021-01-13 2021-01-13 Outpatient EL SLE SLE [id number] SLE 00:00:00 00:00:00 2020-12-26 2020-12-26 Outpatient SHANNAN CABELLO [facility] [id number] [facility] 07:56:15 08:58:07 [facility]in e 2020-12-22 2020-12-22 Office SHANNAN STAPLES 1.2.840.114 [id number] [facility] 14:07:07 16:35:33 Visit HANNAH AMBULATOR 350.1.13.21 College Y 0.2.7.2.686 of [id number] [facility] 810 e 2020-12-22 2020-12-22 Outpatient PHILLY STAPLES [facility] [id number] [facility] 00:00:00 00:00:00 HANNAH 2020-12-02 2020-12-02 Outpatient EL SLE SLE [id number] [facility] 00:00:00 00:00:00 2020-10-17 2020-10-17 Outpatient JOSHUA, [facility] [id number] [facility] 00:00:00 00:00:00 [facility] 2020-10-17 2020-10-17 Outpatient EL JOSHUA, SLE SLE [id number] [facility] 00:00:00 00:00:00 [facility] 2020-04-06 2020-04-06 Office Joshua [facility] 1.2.840.114 [id number] [facility] 07:10:40 10:49:59 Visit Tannaz Franco 350.1.13.21 Co llege 0.2.7.2.686 of [id number] [facility] 530 e 2020-04-06 2020-04-06 Office RICKIE Lewis 1.2.840.114 [id number] 07:10:40 10:49:59 Visit Tannaz Franco 350.1.13.21 0.2.7.2.686 [id number] 530 2020-01-25 2020-01-25 Outpatient EL SLE SLE [id number] [facility] 00:00:00 00:00:00 2019-10-09 2019-10-09 Outpatient SLE [facility] [id number] [facility] 00:00:00 00:00:00 [id number] 2019-10-02 2019-10-02 Office SHANNAN Collazo 1.2.840.114 [id number] [facility] 08:13:07 16:04:41 Visit Mohamed AMBULATOR 350.1.13.21 College Y 0.2.7.2.686 of [id number] [facility] 325 e 2019-10-02 2019-10-02 Office SHANNAN Collazo 1.2.840.114 [id number] 08:13:07 16:04:41 Visit Mohamed AMBULATOR 350.1.13.21 Y 0.2.7.2.686 [id number] 325 2019-10-01 2019-10-01 Office RICKIE Lewis 1.2.840.114 [id number] [facility] 08:18:47 11:57:15 Visit Tannaz Franco 350.1.13.21 Co llege 0.2.7.2.686 of [id number] [facility] 530 e 2019-10-01 2019-10-01 Office JESSICA LewisMartha 1.2.840.114 [id number] 08:18:47 11:57:15 Visit Tannaz Franco 350.1.13.21 0.2.7.2.686 [id number] 2019-08-26 2019-08-26 Office SHANNAN Hooks 1.2.840.114 [id number] [facility] 08:00:35 16:04:33 Visit Manreet AMBULATOR 350.1.13.21 College Y 0.2.7.2.686 of [id number] [facility]i evans 325 e 2019-08-26 2019-08-26 Office SHANNAN Hooks 1.2.840.114 [id number] 08:00:35 16:04:33 Visit Manreet AMBULATOR 350.1.13.21 Y 0.2.7.2.686 [id number] Results Test Description Test Time Test Comments Results Result Comments Source ELECTROLYTES 2021-11-29 09:14:49 Test Item Value Reference Range Interpretation Comme nts SODIUM (BEAKER) (test code = 381) 138 meq/L 136-145 POTASSIUM (BEAKER) (test code = 379) 4.4 meq/L 3.5-5.1 CHLORIDE (BEAKER) (test code = 382) 105 meq/L 98-107 CO2 (BEAKER) (test code = 355) 23 meq/L 22-29 [employer] ID - [id number] AND CREATININE [id number] 09:14:49 Test Item Value Reference Range Interpretation Comments BLOOD UREA NITROGEN 16 mg/dL 7-21 (BEAKER) (test code = 354) CREATININE (BEAKER) 1.04 mg/dL 0.57-1.25 (test code = 358) BUN/CREAT RATIO 15 For a normal (BEAKER) (test code individu al on a = 8324578580) normal diet, t he reference inter silvia for the mass ra alba ranges between 12:1 and 20:1 (BUN i n mg/dL/creatinin e in mg/dL) EGFR (BEAKER) (test 74 mL/min/1.73 ESTIMA DAISY GFR IS code = 1092) sq m NOT ACCURATE CREATININE CLEARANCE IN PREDICTING GLOMERULAR FILTRATION RATE . ESTIMATED GFR I S NOT APPLICABLE FOR DIALYSIS PATIEN TS. [employer] ID - [id number] 08:52:43 Test Item Value Reference Range Interpretation Comments HEMOGLOBIN (BEAKER) (test code = 14.2 GM/DL 13.7-17.5 410) Extr[employer] Corrector ID - [id number], CHEST, WITH IV [id number] 09:29:00Unlisted Reason for Exam - Click Yes and Enter Reason Below->YesUnlisted Reason for Exam->Malignant neoplasm of lower third of esophagus [facility] : 1965 Sex: MFINAL REPORT EXAMINATION: CT, CHEST, WITH IV CONTRAST, CT, ABDOMEN \\T \\ PELVIS, WITH IV CONTRAST INDICATION: Malignant neoplasm of lower third of esophagus COMPARISON: Chest abdomen and pelvis from 07/31/2019, 10/17/2020 and 05/08/2021. TECHNIQUE: Chest, abdomen and pelvis were scanned utilizing a multidetector helical scanner from the lung apex to the ischial tuberosities after administration of IV contrast. Coronal and sagittal reformations were obtained. Routine protocol was performed. IV CONTRAST: 100 mL of Isovue 300ORAL CONTRAST: NoneRADIATIONDOSE: Total DLP: 1502 mGy*cmESTIMATED EFFECTIVE DOSE: DLP x 0.015 mSvCOMPLICATIONS: None FINDINGS: LUNGS AND AIRWAYS: Subpleural calcified pulmonary nodule (5 mm; series 2 image 69) in the right lowerlobe, lateral basal segment. No suspicious pulmonary nodule or mass. No groundglass opacities or focal consolidation. No interstitial lung disease. The airways are normal. PLEURA: The pleural spaces are clear. HEART AND MEDIASTINUM: The thyroid gland is normal. No mediastinal, hilar or axillary lymphadenopathy. No cardiomegaly. No pericardial effusion. Coronary artery disease. ESOPHAGUS: Unchanged mild circumferential thickening of the distal esophageal wall. Unchanged mild sliding hiatal hernia. No regional lymphadenopathy. HEPATOBILIARY: No hepatomegaly. Mild to moderate hepatic steatosis. No focal hepatic lesions. No biliary ductal dilation. GALLBLADDER: No radio-opaque stones or sludge. No wall thickening. SPLEEN: No splenomegaly. PANCREAS: No focal masses or ductal dilatation. ADRENALS: No adrenal nodules KIDNEYS/URETERS: Kidneys enhance symmetrically. No hydronephrosis. No solid mass lesions. Nonobstructive 2 mm calculus in the upper pole calyx of the left kidney. Tiny cortical cyst (3.5 mm) in the lateral cortex of the interpolar left kidney. GI TRACT: Uncomplicated colonic diverticulosis. No abnormal distention, wall thickening, or evidence of bowel obstruction. Nonvisualizedappendix. PELVIC ORGANS/BLADDER: Urinary bladder is unremarkable. Prostate and seminal vesicles appear unremarkable. LYMPH NODES: No lymphadenopathy. VESSELS: Mild atherosclerotic calcifications in theabdominal aorta. No aneurysmal dilatation. Inferior vena cava is unremarkable. Iliac vessels appear unremarkable. PERITONEUM / RETROPERITONEUM: No free air or fluid. BONES: Unremarkable. ANTERIOR ABDOMINAL WALL: Uncomplicated fat-containing epocp-yb-cxwxqhcr sized midline epigastric ventral hernia. Anterior abdominal wall defect measure 4 cm. SOFT TISSUES: Unremarkable. IMPRESSION: 1. Unchanged mild circumferential thickening of the distal esophageal wall. 2. No metastatic disease is identified in the chest abdomen and pelvis. 3. Right lower lobe calcified pulmonary nodule consistent with a granuloma. 4. Nonobstructive left renal calculus. 5. Uncomplicated colonic diverticulosis. 6. Uncomplicated small to moderate sized fat-containing epigastric hernia. Signed: Jorge A Horvath Verified Date/Time: 08/11/2021 09:29:44 Reading Location: [facility] Reading Room [address] [place] [address] [facility], [id number] 09:29:00Unlisted Reason for Exam - Click Yes and Enter Reason Below->Yes Unlisted Reason for Exam->Malignant neoplasm of lower third of esophagus Will this procedure require oral contrast?->No [facility] DOMITILA : 1965 Sex: MFINAL REPORT EXAMINATION: CT, CHEST, WITH IV CONTRAST, CT, ABDOMEN \\T \\ PELVIS, WITH IV CONTRAST INDICATION: Malignant neoplasm of lower third of esophagus COMPARISON: Chest abdomen and pelvis from 07/31/2019, 10/17/2020 and 05/08/2021. TECHNIQUE: Chest, abdomen and pelvis were scanned utilizing a multidetector helical scanner from the lung apex to the ischial tuberosities after administration of IV contrast. Coronal and sagittal reformations were obtained. Routine protocol was performed. IV CONTRAST: 100 mL of Isovue 300ORAL CONTRAST: NoneRADIATIONDOSE: Total DLP: 1502 mGy*cmESTIMATED EFFECTIVE DOSE: DLP x 0.015 mSvCOMPLICATIONS: None FINDINGS: LUNGS AND AIRWAYS: Subpleural calcified pulmonary nodule (5 mm; series 2 image 69) in the right lowerlobe, lateral basal segment. No suspicious pulmonary nodule or mass. No groundglass opacities or focal consolidation. No interstitial lung disease. The airways are normal. PLEURA: The pleural spaces are clear. HEART AND MEDIASTINUM: The thyroid gland is normal. No mediastinal, hilar or axillary lymphadenopathy. No cardiomegaly. No pericardial effusion. Coronary artery disease. ESOPHAGUS: Unchanged mild circumferential thickening of the distal esophageal wall. Unchanged mild sliding hiatal hernia. No regional lymphadenopathy. HEPATOBILIARY: No hepatomegaly. Mild to moderate hepatic steatosis. No focal hepatic lesions. No biliary ductal dilation. GALLBLADDER: No radio-opaque stones or sludge. No wall thickening. SPLEEN: No splenomegaly. PANCREAS: No focal masses or ductal dilatation. ADRENALS: No adrenal nodules KIDNEYS/URETERS: Kidneys enhance symmetrically. No hydronephrosis. No solid mass lesions. Nonobstructive 2 mm calculus in the upper pole calyx of the left kidney. Tiny cortical cyst (3.5 mm) in the lateral cortex of the interpolar left kidney. GI TRACT: Uncomplicated colonic diverticulosis. No abnormal distention, wall thickening, or evidence of bowel obstruction. Nonvisualizedappendix. PELVIC ORGANS/BLADDER: Urinary bladder is unremarkable. Prostate and seminal vesicles appear unremarkable. LYMPH NODES: No lymphadenopathy. VESSELS: Mild atherosclerotic calcifications in theabdominal aorta. No aneurysmal dilatation. Inferior vena cava is unremarkable. Iliac vessels appear unremarkable. PERITONEUM / RETROPERITONEUM: No free air or fluid. BONES: Unremarkable. ANTERIOR ABDOMINAL WALL: Uncomplicated fat-containing umxfx-ko-auzsezvs sized midline epigastric ventral hernia. Anterior abdominal wall defect measure 4 cm. SOFT TISSUES: Unremarkable. IMPRESSION: 1. Unchanged mild circumferential thickening of the distal esophageal wall. 2. No metastatic disease is identified in the chest abdomen and pelvis. 3. Right lower lobe calcified pulmonary nodule consistent with a granuloma. 4. Nonobstructive left renal calculus. 5. Uncomplicated colonic diverticulosis. 6. Uncomplicated small to moderate sized fat-containing epigastric hernia. Signed: Jorge A Horvath MDReport Verified Date/Time: 08/11/2021 09:29:44 Reading Location: [facility] Reading Room [address] [place] [address] [id number] 08:28:28 Test Item Value Reference Range Interpretation Comments POC-CREATININE 1.2 mg/dL 0.6-1.3 : TESTED AT [facility] ([facility]) (test [address] [facility] code = 1859) A, [facility] 7 2740: Extrusion Die Corrector/Techni yocasta ID = [id number] for MARYSOL ALEX POC-EGFR 62 mL/min/1.73M2 ([facility]) (test code = 1860) CT, CHEST, WITH IV [id number] 16:44:00Unlisted Reason for Exam - Click Yes and Enter Reason Below->YesUnlisted Reason for Exam->Malignant neoplasm of lower third of es[facility] : 1965 Sex: MFINAL REPORT CT of the chest, with contrast Clinical History: Unliste d Reason for ExamMalignant neoplasm of lower third of esophagus Technique: CT of the chest is performed with intravenous contrast administration. This exam was performed according to our departmental dose optimization program which includes automated exposure control, adjustment of the mA and/or kV according to patient's size and/or use of iterative reconstructive technique. Comparison Film: October 17, 2020, April 14, 2020 Discussion: Visualized thyroid gland is normal. No supraclavicular, axillary, mediastinal or hilar lymphadenopathy. Heart and pericardium are unremarkable. There is a tiny hiatal hernia. Mild wall thickening is noted in the distal esophagus. There is no mass or consolidation. A calcified granuloma is present in the right lower lobe. No new nodule. No effusion. Central airways are patent. No liver mass is identified. No biliary ductal dilatation, gallbladder is normal. Spleen, pancreas, and adrenal glands are normal. There is a punctate nonobstructive stone within the leftkidney. No mass, or hydronephrosis. No bowel obstruction, or abnormal bowel wall thickening. There is colonic diverticulosis, most pronounced in the sigmoid colon no evidence of acute diverticulitis. No pericecal inflammatory change. Gastric band has been removed. In the pelvis, bladder, prostate and seminal vesicles are unremarkable. There is mild vascular calcification. No ascites, free air or lymphadenopathy. There is a small ventral hernia containing fat. Bony structures demonstrate mild degenerative changes. Impression: Mild distal esophageal wall thickening. No metastatic disease is identified in the chest, abdomen or pelvis. Colonic diverticulosis. Punctate nonobstructive stone within the left kidney. Status post removal of gastric banding. Signed: Juno Sparksort Verified Date/Time: 05/08/2021 16:44:35 Reading Location: [address] Consult Reading Room CT, [id number] 16:44:00Unlisted Reason for Exam - Click Yes and Enter Reason Below->YesUnlisted Reason for Exam->Malignant neoplasm of lower third of esophagusWill this procedure require oral contrast?->No[facility] : 1965 Sex: MFINAL REPORT CT of the chest, with contrast Clinical History: Unliste d Reason for ExamMalignant neoplasm of lower third of esophagus Technique: CT of the chest is performed with intravenous contrast administration. This exam was performed according to our departmental dose optimization program which includes automated exposure control, adjustment of the mA and/or kV according to patient's size and/or use of iterative reconstructive technique. Comparison Film: October 17, 2020, April 14, 2020 Discussion: Visualized thyroid gland is normal. No supraclavicular, axillary, mediastinal or hilar lymphadenopathy. Heart and pericardium are unremarkable. There is a tiny hiatal hernia. Mild wall thickening is noted in the distal esophagus. There is no mass or consolidation. A calcified granuloma is present in the right lower lobe. No new nodule. No effusion. Central airways are patent. No liver mass is identified. No biliary ductal dilatation, gallbladder is normal. Spleen, pancreas, and adrenal glands are normal. There is a punctate nonobstructive stone within the leftkidney. No mass, or hydronephrosis. No bowel obstruction, or abnormal bowel wall thickening. There is colonic diverticulosis, most pronounced in the sigmoid colon no evidence of acute diverticulitis. No pericecal inflammatory change. Gastric band has been removed. In the pelvis, bladder, prostate and seminal vesicles are unremarkable. There is mild vascular calcification. No ascites, free air or lymphadenopathy. There is a small ventral hernia containing fat. Bony structures demonstrate mild degenerative changes. Impression: Mild distal esophageal wall thickening. No metastatic disease is identified in the chest, abdomen or pelvis. Colonic diverticulosis. Punctate nonobstructive stone within the left kidney. Status post removal of gastric banding. Signed: Juno Sparks MDReport Verified Date/Time: 05/08/2021 16:44:35 Reading Location: [facility] B1 C013X Ortho Consult Reading Room TISSUE [id number] 11:02:00Surgical Pathology Report Case: [id number] Authorizing Provider: Bogdan Cabello MD Collected: 01/17/2021 01:52 PM Ordering Location: [facility] PERIOPERATIVE Received: 01/17/2021 03:07 PM SERVICES Pathologist: Noemy Sethi MD Specimen: Other, gastric lap band and access port for ID REMOVAL GASTRIC BANDLAPAROSCOPY:1 GASTRIC BAND AND PORT-A-CATH IDENTIFIED (GROSS ONLY) Signing Pathologist Direct Phone Line: [phone] signed by Noemy Sethi MD on 01/26/2021 at 11:02 [id number] Morbid obesity Personal history of gastric banding ExplantReceived fresh labeled the patient'sname, accession number and "gastric lap band and access port" is a 14.0 x 1.5 x 0.6 cm lakhani-white, rectangular foreign body, which is consistent with a gastric band with attached lakhani-white tubing, zachary 3.0 x 3.0 x 1.1 cm monroy-lakhani, circular Port-A-Cath. The following inscription is identified:ALLERGANLOT #: [id number] #: [id number] RANGE: 0-14 CCA gross photograph is taken. No sections are submitted. This case is for gross examination only.BRITANY Dubois, HT ([facility])POCT-GLUCOSE METER 2021-01-18 05:50:00 Test Item Value Reference Range Interpretation Comments POC-GLUCOSE METER 96 mg/dL 70-110 : TESTED A T [facility] 6720 (BEAKER) (test code = [place], 1538) [address]: Extrusion Die Corrector/Techni yocasta ID = [id number] for TAMMIE SHERMAN POCT-GLUCOSE [id number] 23:09:00 Test Item Value Reference Range Interpretation Comments POC-GLUCOSE METER 147 mg/dL 70-110 H : TESTED A T [facility] 6720 (BEAKER) (test code = [place], 1538) [address]: Extrusion Die Corrector/Techni yocasta ID = [id number] for TAMMIE DIA BASIC METABOLIC [id number] 10:07:00 Test Item Value Reference Range Interpretation Comments SODIUM (BEAKER) 139 meq/L 136-145 (test code = 381) POTASSIUM (BEAKER) 4.1 meq/L 3.5-5.1 (test code = 379) CHLORIDE (BEAKER) 107 meq/L 98-107 (test code = 382) CO2 (BEAKER) (test 25 meq/L 22-29 code = 355) BLOOD UREA NITROGEN 10 mg/dL 7-21 (BEAKER) (test code = 354) CREATININE (BEAKER) 0.81 mg/dL 0.57-1.25 (test code = 358) GLUCOSE RANDOM 103 mg/dL 70-105 (BEAKER) (test code = 652) CALCIUM (BEAKER) 9.1 mg/dL 8.4-10.2 (test code = 697) EGFR (BEAKER) (test 99 mL/min/1.73 ESTIMA DAISY GFR IS code = 1092) sq m NOT ACCURATE CREATININE CLEARANCE IN PREDICTING GLOMERULAR FILTRATION RATE . ESTIMATED GFR I S NOT APPLICABLE FOR DIALYSIS PATIEN TS. Extrusion Die Corrector ID - VALENCIA [id number] 09:47:00 Test Item Value Reference Range Interpretation Comments HEMOGLOBIN (BEAKER) (test code = 12.2 GM/DL 13.7-17.5 L 410) Extrusion Die Corrector ID - [id number], [id number] 14:21:00Reason for Exam:- >GASTROESOPHAGRAM REFLUS DISEASE,UNSPECIFIED WETHER ESOPHAGITIS PRESENT [facility] : 1965 Sex: MFINAL REPORT EXAM: Esophagram was performed with sodium carbonate and barium. INDICATION: 55-year-old man with gastroesophageal reflux disease. COMPARISON: None. FINDINGS:Swallow: Swallowing mechanism is grossly normal. Esophagus is normally distensible and the mucosa is normal in appearance. Esophageal motility is within normal limits. Gastroesophageal junction: Laparo scopic gastric band in place. Small hiatal hernia. Gastroesophageal reflux identified during the exam. Visualized portions of the stomach and proximal small bowel are unremarkable. Fluoroscopy time: 2.7 minutesNumber of images: 30 IMPRESSION:Small hiatal hernia with gastroesophageal reflux. Laparoscopic gastric band in place. Signed: Maria Victoria Duff MDReport Verified Date/Time: 12/22/2020 14:21:44 TISSUE [id number] 12:04:00Surgical Pathology Report Case: [id number] Authorizing Provider: Dimitrios Collazo Collected: 12/06/2020 09:27 AM MD Gustavo [facility]ingLocation[facility] Endoscopy Received: 12/06/2020 11:53 AM Services Pathologist: Carrie Chiu MD Specimens: A) -Biopsy, Gastroesophageal Junction, GE junction biopsy of scar B) - Biopsy, Gastroesophageal Junction, GE junction biopsy irregulat Z line at 6 o'clock A. GASTROESOPHAGEAL JUNCTION, SCAR, BIOPSY: - SQUAMOUS EPITHELIUM WITH MILD REACTIVE CHANGES. - NEGATIVE FOR SIGNIFICANT INTRA-EPITHELIAL EOSINOPHILS. - NEGATIVE FOR DYSPLASIA OR MALIGNANCY. - NO COLUMNAR MUCOSA PRESENT.B. GASTROESOPHAGEAL JUNCTION, IRREGULAR Z LINE, BIOPSY: - SQUAMOUS MUCOSA WITH CHANGES OF REFLUX. - GASTRIC COLUMNAR MUCOSA WITH CHRONIC ACTIVE GASTRITIS, NEGATIVE FOR H-PYLORI LIKE ORGANISMS BY WARTHIN STARRY STAIN. - NEGATIVE FOR SPECIALIZED METAPLASTIC EPITHELIUM. - NEGATIVE FOR DYSPLASIA OR MALIGNANCY. Signing Pathologist Direct Phone Line: [phone] signed by Carrie Chiu MD on 12/07/2020 at 12:04 [id number] 2, [id number]'s A. Biopsy, gastroesophageal junctionB. Biopsy, gastroesophageal junctionA. Received in formalin labeled with the patient's name,medical record number and "GE junction biopsy of scar" and consists of a 0.5 x 0.2 x 0.2 cm monroy-white irregular tissue which is submitted in toto in A1.B. Received in formalin labeled with the patient's name, medical record number and "GE junction biopsy irregular Z-line at 6:00" and consists of 4 irre gular monroy-pink tissues ranging in size from 0.2 to 0.4 cm in greatest dimension submitted in toto inB1.SWPerformed.The interpretation of this case included the use of immunohistochemistry or special stains.Control Slides Examined: In-house known positive controls were evaluated along with the test tissue. These control slides run alongside of the patients sample show appropriate staining. Internalpositive and negative controls when available are evaluated Immunohistochemistry technical testing was performed at [facility], Pathology Laboratory where it was developed and itsperformance characteristics were determined. It has not been cleared or approved by the U.S. Food and Drug Administration. The FDA has determined that such clearance or approval is not necessary. The test is used for clinical purposes. It should not be regarded as investigational or for research. Thislaboratory is certified under the Clinical Laboratory Improvement Amendments of 1988 (CLIA-88) as irma lified to perform high complexity clinical laboratory testing.[facility], Department of Pathology, [address] [place] [address], [facility], [facility], [address] [place] [address], [facility], Department of [facility], [address] [place] [address], [place], [id number] 12:18:00Unlisted Reason for Exam - Click Yes and Enter Reason Below->Yes Unlisted Reason for Exam->Malignant neoplasm of lower third of esophagus Will this procedure require oral contrast?->Yes [facility] : 1965 Sex: MFINAL REPORT CT, ABDOMEN \\T\\ PELVIS, WITH IV CONTRAST, CT, CHEST, WITH IV CONTRAST INDICATION: Unlisted Reason for ExamMalignant neoplasm of lower third of esophagus COMPARISON: CT chest abdomen pelvis 07/31/2019 TECHNIQUE: Computed tomography was performed through the chest, abdomen and pelvis with IV contrast. Coronal and sagittal reformats were provided.Oral Contrast: No This exam was performed according to our departmental dose optimization program which includes automated exposure control, adjustment of the mA and/or kV according to patient size and/or use of iterative reconstructive technique. FINDINGS: CHEST:Lungs: Previously noted small solid pulmonary nodules have resolved. There is a calcified right lower lobe pulmonary nodule related to old granulomatous disease. Lymph nodes and Mediastinum: Unremarkable.Pleura: Unremarkable.Cardiovascular: Three vessel coronary arterial calcifications.Other: Small amount of fluid in the esophagus with mild circumferential wall thickening of the mid esophagus and moderate wall thickening at the distal esophagus. ABDOMEN/PELVIS: Liver: A subcentimeter hypodensity in segment 6, slightly less conspicuous than prior exam (coronal image 57).Gallbladder and bile ducts: Unremarkable.Spleen, pancreas, adrenals: Unremarkable.Kidneys and ureters: Punctate nonobstructive left renal calculus. No hydronephrosis.Bowel: A surgical clip at the gastroesophageal junction. A lap band around the gastric fundus. A tiny periampullaryduodenal diverticulum. Predominantly left sided colonic diverticulosis without associated colonic wall thickening or surrounding stranding. Surgically absent appendix. No evidence for bowel obstructionBladder and reproductive organs: Unremarkable.Lymph nodes: Unremarkable.Peritoneum: Unremarkable.Vessels: Mild atherosclerotic calcifications.Abdominal wall: Lap band port in the upper anterior abdominal wall. MUSCULOSKELETAL:Mild degenerative changes of the thoracolumbar spine. IMPRESSION: History ofesophageal cancer with: 1.Wall thickening of the mid to distal esophageal wall, correlate endoscopically.2.No definite evidence for metastatic disease in the chest abdomen or pelvis. Previously noted rolon bcentimeter hypoattenuating focus in the liver is only faintly seen and nonspecific.3.Previously seen pulmonary nodules are no longer seen.4.Incidental findings including colonic diverticulosis withoutevidence for acute diverticulitis, gastric lap band, and coronary artery calcifications. Signed: Ryan Morales Verified Date/Time: 10/17/2020 12:18:35 Reading Location: [address] Ortho Consult Reading Room CT, CHEST, WITH IV [id number] 12:18:00Unlisted Reason for Exam - Click Yes and Enter Reason Below->Yes Unlisted Reason for Exam->Malignant neoplasm of lower third of es[facility] : 1965 Sex: MFINAL REPORT CT, ABDOMEN \\T\\ PELVIS, WITH IV CONTRAST, CT, CHEST, WITH IV CONTRAST INDICATION: Unlisted Reason for ExamMalignant neoplasm of lower third of esophagus COMPARISON: CT chest abdomen pelvis 07/31/2019 TECHNIQUE: Computed tomography was performed through the chest, abdomen and pelvis with IV contrast. Coronal and sagittal reformats were provided.Oral Contrast: No This exam was performed according to our departmental dose optimization program which includes automated exposure control, adjustment of the mA and/or kV according to patient size and/or use of iterative reconstructive technique. FINDINGS: CHEST:Lungs: Previously noted small solid pulmonary nodules have resolved. There is a calcified right lower lobe pulmonary nodule related to old granulomatous disease. Lymph nodes and Mediastinum: Unremarkable.Pleura: Unremarkable.Cardiovascular: Three vessel coronary arterial calcifications.Other: Small amount of fluid in the esophagus with mild circumferential wall thickening of the mid esophagus and moderate wall thickening at the distal esophagus. ABDOMEN/PELVIS: Liver: A subcentimeter hypodensity in segment 6, slightly less conspicuous than prior exam (coronal image 57).Gallbladder and bile ducts: Unremarkable.Spleen, pancreas, adrenals: Unremarkable.Kidneys and ureters: Punctate nonobstructive left renal calculus. No hydronephrosis.Bowel: A surgical clip at the gastroesophageal junction. A lap band around the gastric fundus. A tiny periampullaryduodenal diverticulum. Predominantly left sided colonic diverticulosis without associated colonic wall thickening or surrounding stranding. Surgically absent appendix. No evidence for bowel obstructionBladder and reproductive organs: Unremarkable.Lymph nodes: Unremarkable.Peritoneum: Unremarkable.Vessels: Mild atherosclerotic calcifications.Abdominal wall: Lap band port in the upper anterior abdominal wall. MUSCULOSKELETAL:Mild degenerative changes of the thoracolumbar spine. IMPRESSION: History ofesophageal cancer with: 1.Wall thickening of the mid to distal esophageal wall, correlate endoscopically.2.No definite evidence for metastatic disease in the chest abdomen or pelvis. Previously noted rolon bcentimeter hypoattenuating focus in the liver is only faintly seen and nonspecific.3.Previously seen pulmonary nodules are no longer seen.4.Incidental findings including colonic diverticulosis withoutevidence for acute diverticulitis, gastric lap band, and coronary artery calcifications. Signed: Ryan Moraleseport Verified Date/Time: 10/17/2020 12:18:35 Reading Location: [address] Consult Reading Room [id number] 07:23:00 Test Item Value Reference Range Interpretation Comments POC-CREATININE 0.9 mg/dL 0.6-1.3 : TESTED AT [facility] ([facility]) (test [address] [facility] [place] [facility] = [facility]59[facility] A, [facility] 7 4506: Extrusion Die Corrector/Techni yocasta ID = [id number] for MARYSOL ALEX POC-EGFR 87 mL/min/1.73M2 ([facility]) (test code = 1860) TISSUE [id number] 13:12:00Surgical Pathology Report Case: [id number] Authorizing Provider: Dimitrios Collazo Collected: 01/26/2020 10:18 AM MD Gustavo Ordering Location: [facility] Endoscopy Received: 01/26/2020 11:56 AM Services Pathologist: Thomas Amaral MD Specimens: A) -Biopsy, Esophagus, ESD Scar Bx B) - Biopsy, Esophagus, 1cm Barretts Esophagus Bx C) - Polyp, Colon - Transverse A. ESOPHAGUS, ESD SCAR, BIOPSY: - SQUAMOUS EPITHELIUM WITH REACTIVE CHANGES - NEGATIVE FOR DYSPLASIA/ MALIGNANCYB. ESOPHAGUS,1 CM BOATENG'S, BIOPSY: - JUNCTIONAL MUCOSA WITH FOCAL INTESTINAL METAPLASIA CONSISTENT WITH BOATENG'S ESOPHAGUS - ACUTE INFLAMMATION IN THE BACKGROUND - NEGATIVE FOR DYSPLASIA/ MALIGNANCYC. COLON, TRANSVERSE POLYP, BIOPSY: - TUBULAR ADENOMA Signing Pathologist Direct Phone Line: [phone] signed by Thomas Amaral MD on 01/27/2020 at 1:12 [id number] cancer screening, esophageal lesionA. Esophagus biopsy, ESD scar biopsy; B. 1 cm Colten's esophagus biopsy; C. Transverse colon polypThe case is received in three parts labeled with the patient's name and accession number.A. Received in formalin labeled "esophagus biopsy" are two monroy-pink tissue fragments ranging from 0.1 to 0.4 cm in greatest dimension which are submitted in toto in cassette A1. B. Received in formalin labeled "esophagus biopsy" are two ta-pink tissue fragments each measuring 0.3 cm in greatest dimension which ae submitted in toto in cassette B1. C. Received in formalin labeled "transverse colon polyp" is a 0.4 x 0.3 x 0.3 cm monroy-pink polypoid tissue which is submitted in toto in cassette C1.MW/plPerformed.TISSUE [id number] 12:20:00Surgical Pathology Report Case: [id number] Authorizing Provider: Dimitrios Collazo Collected: 09/15/2019 1304 MD Gustavo OrderingLocation: [facility] Endoscopy Received: 09/15/2019 1423 Services Pathologist: Kristin Cobos MD Specimen: Distal Esophagus, Distal Esophageal ESD GASTROESOPHAGEAL JUNCTION, ENDOSCOPIC MUCOSAL RESECTION OF NODULE- INVASIVE INTRAMUCOSAL ADENOCARCINOMA, MODERATELY DIFFER ENTIATED, - TUMOR SIZE 5.7 CM- TUMOR INVADES INTO LAMINA PROPRIA AND MUSCULARIS MUCOSAE (Vieth andStolte Depth of invasion: m3)- NO LYMPHOVASCULAR INVASION SEEN - NO PERINEURAL INVASION SEEN- SUBSQUAMOUS HIGH GRADE DYSPLASIA / INTRAMUCOSAL ADENOCARCINOMA PRESENT- PERIPHERAL AND DEEP MARGINS, NEGATIVE FOR DYSPLASIA OR ADENOCARCINOMA- [facility] PATHOLOGIC STAGE (8th EDITION): p T1a NX Signing Pathologist Direct Phone Line: [phone] signed by Kristin Cobos MD on 09/24/2019 at 12:20 PMESOPHAGUS (Esophagus - All Specimens)SPECIMEN Procedure: Endoscopic resection TUMOR Tumor Site: Distal esophagus (low thoracic esophagus) Tumor Site: Esophagogastric junction (EGJ) Relationship of Tumor to Esophagogastric Junction: Not specified Histologic Type: Adenocarcinoma Histologic Grade: G2: Moderately differentiated Tumor Size: Greatest dimension in Centimeters (cm): 5.7 CM Centimeters (cm) Tumor Extent (Note E): Tumor Extension: Tumor invades muscularis mucosae Accessory Findings: Treatment Effect: No known presurgical therapy Lymphovascular Invasion: Not identified Perineural Invasion: Not identifiedMARGINS Margins: Mucosal Margin: Uninvolved by invasive carcinoma Status of Dysplasia at Mucosal Margin: Uninvolved by dysplasia Deep Margin: Uninvolved by invasive carcinoma LYMPH NODES Regional Lymph Nodes: No lymph nodes submitted or found PATHOLOGIC STAGE CLASSIFICATION (pTNM, AJCC 8th Edition) Primary Tumor (pT): pT1a Regional Lymph Nodes (pN): pN0 ADDITIONAL FINDINGS Additional Pathologic Findings: Intestinal metaplasia (Boateng's esophagus) [id number] lesion Distal esophageal ESDReceived fresh labeled with the patient's name, accessionnumber and "distal esophagus" is a 6.8 x 4.0 x 0.1 cm unoriented portion of pink mucosa pinned to a piece of styrofoam. The surface of the mucosa displays a 5.7 x 3.2 x 0.2 cm slightly raised, red-pink nodular area. This area approaches the radial margin and abuts the deep margin. A gross photograph is taken. This specimen is serially sectioned and entirely submitted sequentially in A1-A34, one cross section in each cassette. Ink code: blue, radial margin, black deep margin. CG/pl Microscopic examination is performed and the findings are incorporated in the diagnostic line.PET/CT, SKULL BASE TO MID-THIGH [id number] 09:56:00FINAL REPORT EXAMINATION: FDG-PET/CT, 08/21/2019 9:32 AM CLINICAL HISTORY:Newly diagnosed esophageal adenocarcinoma.INDICATION: FDG-PET/CT is obtained for initial treatment evaluation.COMPARISON: CT studies 07/31/2019 TECHNIQUE:Radiopharmaceutical: F-18 FluorodeoxyglucoseAdministered activity: 11.9] mCiRoute of administration: Intravenously via the right handLocalization time: 61 minutesScan extent: Skull base to the proximal thighsAdditional imaging: NoneSerum blood glucose: 76 mg/dlCPT Code: 41450 FINDINGS:Head and Neck: Prominent radiotracer activity in the lymphoid tissue of the tonsils and tongue base is consistent with lymphoid hyperplasia. No levar hypermetabolism is seen along the cervical chains. Chest: There is asymmetric mural thickening along the right lateral wall of the distal esophagus above the gastroesophageal junction, with associated increased FDG activity on PET (SUV = 4.8). Activity is confined to the esophageal wall. CT images again show scattered subcentimeter pulmonary nodules in the lungs. The majority of these are not visibly FDG-avid above regional background on PET scanning, but a 6 mm subpleural nodule in the left upper lobe laterally (CT image 38) does show faint uptake (SUV = 1.4). There is no intrathoracic levar hypermetabolism.There is no levar hypermetabolism in mediastinal or supraclavicular regions. Abdomen and Pelvis: Tracer uptake in the hepatic parenchyma is heterogeneous, but no dominant foci of hypermetabolism are seen within the liver. The small low-density lesion in the right hepatic lobe inferiorly is stable in appearance, and is not visibly FDG-avid above hepatic background. There is no adenopathy or levar hyper metabolism in left gastric or retroperitoneal chains. Status post lap banding procedure. Scattered distal colonic diverticula, without evidence of diverticulitis. Musculoskeletal: There are no focal sites of osseous hypermetabolism. Marrow activity is mildly increased diffusely, favored to represent marrow hyperplasia. IMPRESSION: 1.Asymmetric hypermetabolism in the distal esophagus above the GE junction, consistent with newly diagnosed high- grade dysplasia/adenocarcinoma.2.The majority of subcentimeter pulmonary nodules seen on CT scanning are not visible on PET, although a 6 mm nodule in the left upper lobe laterally does show faint uptake. The appearance is most suggestive of an inflammatory etiology, but CT follow-up is recommended to assess stability of these nodules.3.No evidence of metastatic disease elsewhere in the body. Signed: Ryan Pike Verified Date/Time: 08/25/2019 09:56:44 POCT- GLUCOSE [id number] 10:50:00 Test Item Value Reference Range Interpretation Comments POC-GLUCOSE METER 76 mg/dL 70-110 : TESTED A T [facility] 6720 (BEAKER) (test code = DUANE Cuellar [facility], 1538) [address]: Extrusion Die Corrector/Techni yocasta ID = [id number] for MEGA VIRGEN OVA AND PARASITE [id number] 07:17:00 Test Item Value Reference Range Interpretation Comments DIRECT SMEAR - O\\T\\P No ova or parasites No ova or parasites (BEAKER) (test code = seen seen 196) CONCENTRATE SMEAR - No ova or parasites No ova or parasites O\\T\\P (BEAKER) (test seen seen code = 247) TRICHROME SMEAR - No ova or parasites No ova or parasites O\\T\\P (BEAKER) (test seen seen code = 248) STOOL CULTURE + SHIGA [id number] 06:46:00 Test Item Value Reference Range Interpretation Comments CULTURE (BEAKER) No Salmonella, Shigella (test code = 1095) or Campylobacter isolated CT, [id number] 03:47:00FINAL REPORT CLINICAL HISTORY: Gastric neoplasm FINDINGS: Multiple axial images of the chest, abdomen and pelvis were performed after the uncomplicated administration of IV contrast. Oral contrast was not given. This exam was performed according to our departmental dose-optimization program, which includes automated exposure control, adjustment of the mA and/or kV according to patient size and/or use of the iterative reconstruction technique. Comparison: None. Chest: Lung par enchyma: There are several subcentimeter nodules in the left lung, ranging from 3 to 9 mm. Calcifiedgranuloma in the right lower lung. Pleural effusion: None. Pneumothorax: None. Tracheobronchial tree: No significant findings. Pulmonary vasculature: No significant findings. Cardiac contours and greatvessels: Atherosclerotic calcifications of the coronary arteries. Mediastinum: Small hiatal hernia with circumferential wall thickening of the proximal stomach. Metallic clip in this region of the stomach. Lymph Nodes: No adenopathy in the mediastinum or long. Skeleton: No acute abnormality. No lytic or blastic lesion in the thoracic skeleton. Abdomen and pelvis: Liver: 6 mm hypodensity in the inferior right liver, too small to characterize. Gallbladder and biliary tree: No significant findings. Spleen: No significant findings. Adrenal Glands: No significant findings. Kidneys and ureters: No significant findings. Stomach and Duodenum: Gastric band in place. There is subtle thickening of the stomach proximal to the band. An endoscopic clip is present in this portion of the proximal stomach. Pancreas: No significant findings. Bowel: Scattered colonic diverticula. No bowel obstruction or pneumatosis intestinalis. Metallic clip in the cecum. Appendix: Not seen. No local inflammatory changes. Bladder: No significant findings. Major vascular structures: Scattered atherosclerotic calcifications Reproductive organs: No significant findings. Other: Small, fat filled inguinal hernias, left greater than right. No free air, fluid or adenopathy Skeleton: No acute bony abnormality. IMPRESSION: Multipleleft pulmonary nodules ranging in size from 3 to 9 mm. Metastatic disease is not excluded in a patient with a history of gastric neoplasm, though infectious or inflammatory nodules are alternative considerations. Further evaluation with CT PET versus 3 month interval follow-up is recommended. Subtle wall thickening of the gastric cardia proximal to the gastric band, nonspecific and possibly reflecting gastritis, however, an underlying gastric lesion could be present. Please correlate with biopsy results. 6 mm hypodensity in the inferior right liver, too small to characterize but probably a cyst. Definitive characterization with liver protocol MRI can be performed. Alternatively, attention on follow-up. Colonic diverticulosis. Signed: Jesus Jacques MDReport Verified Date/Time: 08/01/2019 03:47:13 CT, CHEST, WITH [id number] 03:47:00 FINAL REPORT CLINICAL HISTORY: Gastric neoplasm FINDINGS: Multiple axial images of the chest, abdomen and pelvis were performed after the uncomplicated administration of IV contrast. Oral contrast was not given. This exam was performed according to our departmental dose-optimization program, which includes automated exposure control, adjustment of the mA and/or kV according to patient size and/or use of the iterative reconstruction technique. Comparison: None. Chest: Lung parenchyma: There are several subcentimeter nodules in the left lung, ranging from 3 to 9 mm. Calcified granuloma in the right lower lung. Pleural effusion: None. Pneumothorax: None. Tracheobronchial tree: No significant findings. Pulmonary vasculature: No significant findings. Cardiac contours and greatvessels: Atherosclerotic calcifications of the coronary arteries. Mediastinum: Small hiatal hernia with circumferential wall thickening of the proximal stomach. Metallic clip in this region of the stomach. Lymph Nodes: No adenopathy in the mediastinum or long. Skeleton: No acute abnormality. No lytic or blastic lesion in the thoracic skeleton. Abdomen and pelvis: Liver: 6 mm hypodensity in the inferior right liver, too small to characterize. Gallbladder and biliary tree: No significant findings. Spleen: No significant findings. Adrenal Glands: No significant findings. Kidneys and ureters: No significant findings. Stomach and Duodenum: Gastric band in place. There is subtle thickening of the stomach proximal to the band. An endoscopic clip is present in this portion of the proximal stomach. Pancreas: No significant findings. Bowel: Scattered colonic diverticula. No bowel obstruction or pneumatosis intestinalis. Metallic clip in the cecum. Appendix: Not seen. No local inflammatory changes. Bladder: No significant findings. Major vascular structures: Scattered atherosclerotic calcifications Reproductive organs: No significant findings. Other: Small, fat filled inguinal hernias, left greater than right. No free air, fluid or adenopathy Skeleton: No acute bony abnormality. IMPRESSION: Multipleleft pulmonary nodules ranging in size from 3 to 9 mm. Metastatic disease is not excluded in a patient with a history of gastric neoplasm, though infectious or inflammatory nodules are alternative considerations. Further evaluation with CT PET versus 3 month interval follow-up is recommended. Subtle wall thickening of the gastric cardia proximal to the gastric band, nonspecific and possibly reflecting gastritis, however, an underlying gastric lesion could be present. Please correlate with biopsy results. 6 mm hypodensity in the inferior right liver, too small to characterize but probably a cyst. Definitive characterization with liver protocol MRI can be performed. Alternatively, attention on follow-up. Colonic diverticulosis. Signed: Jesus Jacques MDReport Verified Date/Time: 08/01/2019 03:47:13 U/S, ABDOMINAL, WITH [id number] 16:15:00Reason for exam:- >evidence of portal hypertension on EGD, eval for cirrhosisReason for exam:->PENDING DISCHARGEShould this be performed at the bedside?->NoFINAL REPORT TECHNIQUE: Grayscale ultrasound of the abdomen with color Doppler and spectral Doppler ultrasound of the portal/hepatic vasculature. INDICATION: evidence of portal hypertension on EGD, eval for cirrhosisPENDING DISCHARGE. COMPARISON: Outside facility coronal CT from 07/28/2019. FINDINGS: LIVER: The liver is enlarged at 18.5 cm in right hepatic lobe length with increased echogenicity. Mild sparing around the gallbladder. Smooth liver contour. No focal liver lesions. HEPATIC VASCULATURE: Main and right portal veins are patent. Flow velocity in the main portal veinis within normal limits. The hepatic veins and confluence are patent. The main portal vein measures 0.8 cm in diameter. The hepatic arterial resistive indices range from 0.5-0.8 with a proper hepatic arterial acceleration time of 0.07 seconds. The left hepatic artery was not interrogated. The left portal vein was not evaluated. BILIARY:Gallbladder: No gallstones or sludge. No gallbladder wall thickening, pericholecystic fluid, or distention. Negative sonographic Carpenter sign.Common bile duct measures0.6 cm, within normal limits. No intrahepatic biliary ductal dilatation. PANCREAS: Incompletely visualized due to overlying bowel gas. The partially visualized pancreatic neck is normal. SPLEEN: No sple nomegaly. The spleen measures 11.2 cm in length. PERITONEUM: No free fluid. KIDNEYS: Normal in size bilaterally. No hydronephrosis. No sonographically evident solid mass lesion. MIDLINE VASCULATURE: The visualized inferior vena cava is patent. The maximum visualized aortic diameter is 2.3 cm. Splenicartery and vein are patent. IMPRESSION: 1.Mild hepatomegaly with diffuse fatty infiltration of the liver. 2.No definitive findings for portal hypertension. Specifically, the portal venous velocity is normal, and the spleen is normal in size. Signed: Sujata Campos MDReport Verified Date/Time: 07/31/201916:15:21 Reading Location: [address] Radiology Reading Room TISSUE [id number] 10:35:00Surgical Pathology Report Case: [id number] Authorizing Provider: Farzaneh Hooks MD Collected: 07/30/2019 1143 Ordering Location: [address] Received: 07/30/2019 1519 Service Pathologist: Kristin Cobos MD Specimens: A) - Biopsy, Gastric, gastric body and antrum biopsy B) -Stomach, cardia biopsy A. STOMACH, BODY ANDANTRUM, BIOPSIES:- OXYNTIC AND JUNCTIONAL MUCOSA WITH MILD CHRONIC INACTIVE GASTRITIS- NEGATIVE FOR H ELICOBACTER PYLORI- NEGATIVE FOR INTESTINAL METAPLASIA, DYSPLASIA OR CARCINOMAB. 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 One tissue piece is nondysplastic gastric cardia mucosa. No intestinal metaplasia is seen. The second tissue piece shows columnar mucosa with high grade dysplasia bordering on intramucosal adenocarcinoma, and there is an esophageal gland (seen on level 1), suggesting that this could be sampling from tubular esophagus. Clinical and endoscopic correlation is recommended to determine if this is high grade dysplasia/intramucosal adenocarcinoma arising in the setting of Boateng esophagus. 77350 x2, 12949 x2A. Received in formalin labeled with the patient's name,MRN and "gastric biopsy" are three monroy-white soft tissue fragments aggregating to 0.5 x 0.3 x 0.2 cm. Submitted entirely in one cassette following filtration. B. Received in formalin labeled with the p atient's name, MRN and "stomach" are two monroy-pink soft tissue fragments measuring 0.3 x 0.2 x 0.1 cm. Submitted entirely in one cassette following filtration. JM/plSpecimen A Microscopic examination is performed and the findings are incorporated in the diagnostic line. Specimen B: The biopsies from gastric cardia includes two pieces of columnar mucosa. One tissue pieces show nondysplastic gastric cardia type mucosa. No intestinal metaplasia is seen. The second tissue piece shows columnar mucosa with high grade dysplasia bordering on intramucosal adenocarcinoma. There is an esophageal gland entrapped in the dysplastic foci (seen on level 1)Warthin starry stain is negative for Helicobacter pylori (blocks A and B). The interpretation of this case included the use of immunohistochemistry or special stains.Control Slides Examined: In- house known positive controls were evaluated along with the test tissue. These control slides run alongside of the patients sample show appropriate staining. Internal positive and negative controls when available are evaluated Immunohistochemistry technical testing was performed at [facility], Pathology Laboratory where it was developed and its performance characteristics were determined. It has not been cleared or approved by the U.S. Food and Drug Administration. The FDA has determined that such clearance or approval is not necessary. The test is used for clinical purposes. It should not be regarded as investigational or for research. This laboratory is certified under the Clinical Laboratory Improvement Amendments of 1988 (CLIA-88) as qu alified to perform high complexity clinical laboratory testing.STOOL PATH CHARGE 2019-07-31 08:24:00 Test Item Value Reference Range Interpretation Comments PATHOGEN EXAM CHARGED (BEAKER) (test Done code = 2381) HEPATIC FUNCTION [id number] 07:09:00 Test Item Value Reference Range Interpretation Comments TOTAL PROTEIN (BEAKER) (test code = 7.0 gm/dL 6.0-8.3 770) ALBUMIN (BEAKER) (test code = 1145) 3.7 g/dL 3.5-5.0 BILIRUBIN TOTAL (BEAKER) (test code 0.4 mg/dL 0.2-1.2 = 377) BILIRUBIN DIRECT (BEAKER) (test 0.2 mg/dL 0.1-0.5 code = 706) ALKALINE PHOSPHATASE (BEAKER) (test 78 U/L 40-150 code = 346) AST (SGOT) (BEAKER) (test code = 19 U/L 5-34 353) ALT (SGPT) (BEAKER) (test code = 20 U/L 6-55 347) CBC W/PLT COUNT & AUTO [id number] 06:19:00 Test Item Value Reference Range Interpretation Comments WHITE BLOOD CELL COUNT (BEAKER) 12.1 K/ L 3.5-10.5 H (test code = 775) RED BLOOD CELL COUNT (BEAKER) 4.79 M/ L 4.63-6.08 (test code = 761) HEMOGLOBIN (BEAKER) (test code = 13.3 GM/DL 13.7-17.5 L 410) HEMATOCRIT (BEAKER) (test code = 40.6 % 40.1-51.0 411) MEAN CORPUSCULAR VOLUME (BEAKER) 84.8 fL 79.0-92.2 (test code = 753) MEAN CORPUSCULAR HEMOGLOBIN 27.8 pg 25.7-32.2 (BEAKER) (test code = 751) MEAN CORPUSCULAR HEMOGLOBIN CONC 32.8 GM/DL 32.3-36.5 (BEAKER) (test code = 752) RED CELL DISTRIBUTION WIDTH 13.2 % 11.6-14.4 (BEAKER) (test code = 412) PLATELET COUNT (BEAKER) (test 303 K/CU MM 150-450 code = 756) MEAN PLATELET VOLUME (BEAKER) 9.8 fL 9.4-12.4 (test code = 754) NUCLEATED RED BLOOD CELLS 0 /100 WBC 0-0 (BEAKER) (test code = 413) NEUTROPHILS RELATIVE PERCENT 81 % (BEAKER) (test code = 429) LYMPHOCYTES RELATIVE PERCENT 12 % (BEAKER) (test code = 430) MONOCYTES RELATIVE PERCENT 6 % (BEAKER) (test code = 431) EOSINOPHILS RELATIVE PERCENT 1 % (BEAKER) (test code = 432) BASOPHILS RELATIVE PERCENT 0 % (BEAKER) (test code = 437) NEUTROPHILS ABSOLUTE COUNT 9.73 K/ L 1.78-5.38 H (BEAKER) (test code = 670) LYMPHOCYTES ABSOLUTE COUNT 1.41 K/ L 1.32-3.57 (BEAKER) (test code = 414) MONOCYTES ABSOLUTE COUNT (BEAKER) 0.75 K/ L 0.30-0.82 (test code = 415) EOSINOPHILS ABSOLUTE COUNT 0.13 K/ L 0.04-0.54 (BEAKER) (test code = 416) BASOPHILS ABSOLUTE COUNT (BEAKER) 0.03 K/ L 0.01-0.08 (test code = 417) IMMATURE GRANULOCYTES-RELATIVE 0 % 0-1 PERCENT (BEAKER) (test code = 2801) HEMOGLOBIN AND [id number] 06:01:00 Test Item Value Reference Range Interpretation Comments HEMOGLOBIN (BEAKER) (test code = 13.3 GM/DL 13.7-17.5 L 410) HEMATOCRIT (BEAKER) (test code = 40.6 % 40.1-51.0 411) SHIGA TOXIN [id number] 15:11:00 Test Item Value Reference Range Interpretation Comments SHIGA TOXIN 1 (BEAKER) (test Not detected Not detected code = 2177) SHIGA TOXIN 2 (BEAKER) (test Not detected Not detected code = 2179) C. DIFFICILE GDH [id number] 10:37:00 Test Item Value Reference Range Interpretation Comments CDT TOXIN (test code Negative Negative = [id number]) CDT GDH ANTIGEN (test Negative Negative No ind ication of code = [id number]) Clostridi um difficile infection and n o colonization. Discontinue ent ryan isolation and t herapy. Testing performed by [facility] Rapid Cassette Assay. For GDH, published sensitivity of the assay is 98.7% compared to cytotoxicity testing. For Toxin AB, published sensitivity is 87.8% and specificity 99.4% compared to cytotoxicity testing.Verification of kit performance was done by the [facility] Microbiology Lab prior to clinical use.HEPATIC FUNCTION [id number] 07:48:00 Test Item Value Reference Range Interpretation Comments TOTAL PROTEIN (BEAKER) (test code = 7.1 gm/dL 6.0-8.3 770) ALBUMIN (BEAKER) (test code = 1145) 3.8 g/dL 3.5-5.0 BILIRUBIN TOTAL (BEAKER) (test code 0.4 mg/dL 0.2-1.2 = 377) BILIRUBIN DIRECT (BEAKER) (test 0.2 mg/dL 0.1-0.5 code = 706) ALKALINE PHOSPHATASE (BEAKER) (test 73 U/L 40-150 code = 346) AST (SGOT) (BEAKER) (test code = 17 U/L 5-34 353) ALT (SGPT) (BEAKER) (test code = 21 U/L 6-55 347) BASIC METABOLIC [id number] 07:48:00 Test Item Value Reference Range Interpretation Comments SODIUM (BEAKER) 136 meq/L 136-145 (test code = 381) POTASSIUM (BEAKER) 4.2 meq/L 3.5-5.1 (test code = 379) CHLORIDE (BEAKER) 106 meq/L 98-107 (test code = 382) CO2 (BEAKER) (test 23 meq/L 22-29 code = 355) BLOOD UREA NITROGEN 9 mg/dL 7-21 (BEAKER) (test code = 354) CREATININE (BEAKER) 0.93 mg/dL 0.57-1.25 (test code = 358) GLUCOSE RANDOM 104 mg/dL 70-105 (BEAKER) (test code = 652) CALCIUM (BEAKER) 9.2 mg/dL 8.4-10.2 (test code = 697) EGFR (BEAKER) (test 84 mL/min/1.73 ESTIMA DAISY GFR IS code = 1092) sq m NOT ACCURATE CREATININE CLEARANCE IN PREDICTING GLOMERULAR FILTRATION RATE . ESTIMATED GFR I S NOT APPLICABLE FOR DIALYSIS PATIEN TS. B-TYPE NATRIURETIC FACTOR (BNP)2019-07-30 07:42:00 Test Item Value Reference Range Interpretation Comments B-TYPE NATRIURETIC PEPTIDE (BEAKER) 15 pg/mL 0-100 (test code = 700) HEMOGLOBIN AND [id number] 07:19:00 Test Item Value Reference Range Interpretation Comments HEMOGLOBIN (BEAKER) (test code = 13.0 GM/DL 13.7-17.5 L 410) HEMATOCRIT (BEAKER) (test code = 40.6 % 40.1-51.0 411) CBC W/PLT COUNT & AUTO [id number] 07:19:00 Test Item Value Reference Range Interpretation Comments WHITE BLOOD CELL COUNT (BEAKER) 6.2 K/ L 3.5-10.5 (test code = 775) RED BLOOD CELL COUNT (BEAKER) 4.75 M/ L 4.63-6.08 (test code = 761) HEMOGLOBIN (BEAKER) (test code = 13.0 GM/DL 13.7-17.5 L 410) HEMATOCRIT (BEAKER) (test code = 40.6 % 40.1-51.0 411) MEAN CORPUSCULAR VOLUME (BEAKER) 85.5 fL 79.0-92.2 (test code = 753) MEAN CORPUSCULAR HEMOGLOBIN 27.4 pg 25.7-32.2 (BEAKER) (test code = 751) MEAN CORPUSCULAR HEMOGLOBIN CONC 32.0 GM/DL 32.3-36.5 L (BEAKER) (test code = 752) RED CELL DISTRIBUTION WIDTH 13.1 % 11.6-14.4 (BEAKER) (test code = 412) PLATELET COUNT (BEAKER) (test 291 K/CU MM 150-450 code = 756) MEAN PLATELET VOLUME (BEAKER) 9.9 fL 9.4-12.4 (test code = 754) NUCLEATED RED BLOOD CELLS 0 /100 WBC 0-0 (BEAKER) (test code = 413) NEUTROPHILS RELATIVE PERCENT 63 % (BEAKER) (test code = 429) LYMPHOCYTES RELATIVE PERCENT 24 % (BEAKER) (test code = 430) MONOCYTES RELATIVE PERCENT 9 % (BEAKER) (test code = 431) EOSINOPHILS RELATIVE PERCENT 3 % (BEAKER) (test code = 432) BASOPHILS RELATIVE PERCENT 1 % (BEAKER) (test code = 437) NEUTROPHILS ABSOLUTE COUNT 3.94 K/ L 1.78-5.38 (BEAKER) (test code = 670) LYMPHOCYTES ABSOLUTE COUNT 1.47 K/ L 1.32-3.57 (BEAKER) (test code = 414) MONOCYTES ABSOLUTE COUNT (BEAKER) 0.58 K/ L 0.30-0.82 (test code = 415) EOSINOPHILS ABSOLUTE COUNT 0.16 K/ L 0.04-0.54 (BEAKER) (test code = 416) BASOPHILS ABSOLUTE COUNT (BEAKER) 0.04 K/ L 0.01-0.08 (test code = 417) IMMATURE GRANULOCYTES-RELATIVE 1 % 0-1 PERCENT (BEAKER) (test code = 2801) HEMOGLOBIN AND [id number] 21:45:00 Test Item Value Reference Range Interpretation Comments HEMOGLOBIN (BEAKER) (test code = 12.4 GM/DL 13.7-17.5 L 410) HEMATOCRIT (BEAKER) (test code = 37.7 % 40.1-51.0 L 411) HEMOGLOBIN [id number] 08:07:00 Test Item Value Reference Range Interpretation Comments HEMOGLOBIN A1C (BEAKER) (test code = 5.5 % 4.3-6.1 368) BASIC METABOLIC [id number] 05:45:00 Test Item Value Reference Range Interpretation Comments SODIUM (BEAKER) 138 meq/L 136-145 (test code = 381) POTASSIUM (BEAKER) 4.3 meq/L 3.5-5.1 Specimen slightly (test code = 379) hemolyzed CHLORIDE (BEAKER) 109 meq/L 98-107 H (test code = 382) CO2 (BEAKER) (test 21 meq/L 22-29 L code = 355) BLOOD UREA NITROGEN 9 mg/dL 7-21 (BEAKER) (test code = 354) CREATININE (BEAKER) 0.85 mg/dL 0.57-1.25 Specimen slightly (test code = 358) hemolyzed GLUCOSE RANDOM 80 mg/dL 70-105 (BEAKER) (test code = 652) CALCIUM (BEAKER) 8.5 mg/dL 8.4-10.2 (test code = 697) EGFR (BEAKER) (test 94 mL/min/1.73 ESTIMA DAISY GFR IS code = 1092) sq m NOT ACCURATE CREATININE CLEARANCE IN PREDICTING GLOMERULAR FILTRATION RATE . ESTIMATED GFR I S NOT APPLICABLE FOR DIALYSIS PATIEN TS. HEPATIC FUNCTION [id number] 05:45:00 Test Item Value Reference Range Interpretation Comments TOTAL PROTEIN (BEAKER) 6.5 gm/dL 6.0-8.3 Speci men slightly (test code = 770) hemolyzed ALBUMIN (BEAKER) (test 3.3 g/dL 3.5-5.0 L Speci men slightly code = 1145) hemolyzed BILIRUBIN TOTAL 0.4 mg/dL 0.2-1.2 Specimen sli ghtly (BEAKER) (test code = hemoly zed 377) BILIRUBIN DIRECT 0.2 mg/dL 0.1-0.5 Specimen sl ightly (BEAKER) (test code = hemoly zed 706) ALKALINE PHOSPHATASE 65 U/L 40-150 (BEAKER) (test code = 346) AST (SGOT) (BEAKER) 28 U/L 5-34 Specimen slightly (test code = 353) hemolyzed ALT (SGPT) (BEAKER) 23 U/L 6-55 Specimen slightly (test code = 347) hemolyzed PROTHROMBIN [id number] 05:20:00 Test Item Value Reference Range Interpretation Comments PROTIME (BEAKER) (test code = 13.5 seconds 11.9-14.2 759) INR (BEAKER) (test code = 370) 1.1 <=5.9 Effective 12/31/2018: PT Reference Range ChangeNew: 11.9-14.2 Previous: 11.7- 14.7RECOMMENDED COUMADIN/WARFARIN INR THERAPY RANGESSTANDARD DOSE: 2.0-3.0 Includes: PROPHYLAXIS for venous thrombosis, systemic embolization; TREATMENT for venous thrombosis and/or pulmonary embolus.HIGH RISK: Target INR is2.5-3.5 for patients wiht mechanical heart valves.CBC W/PLT COUNT & AUTO [id number] 05:14:00 Test Item Value Reference Range Interpretation Comments WHITE BLOOD CELL COUNT (BEAKER) 6.6 K/ L 3.5-10.5 (test code = 775) RED BLOOD CELL COUNT (BEAKER) 4.18 M/ L 4.63-6.08 L (test code = 761) HEMOGLOBIN (BEAKER) (test code = 11.8 GM/DL 13.7-17.5 L 410) HEMATOCRIT (BEAKER) (test code = 35.9 % 40.1-51.0 L 411) MEAN CORPUSCULAR VOLUME (BEAKER) 85.9 fL 79.0-92.2 (test code = 753) MEAN CORPUSCULAR HEMOGLOBIN 28.2 pg 25.7-32.2 (BEAKER) (test code = 751) MEAN CORPUSCULAR HEMOGLOBIN CONC 32.9 GM/DL 32.3-36.5 (BEAKER) (test code = 752) RED CELL DISTRIBUTION WIDTH 13.4 % 11.6-14.4 (BEAKER) (test code = 412) PLATELET COUNT (BEAKER) (test 291 K/CU MM 150-450 code = 756) MEAN PLATELET VOLUME (BEAKER) 10.6 fL 9.4-12.4 (test code = 754) NUCLEATED RED BLOOD CELLS 0 /100 WBC 0-0 (BEAKER) (test code = 413) NEUTROPHILS RELATIVE PERCENT 61 % (BEAKER) (test code = 429) LYMPHOCYTES RELATIVE PERCENT 27 % (BEAKER) (test code = 430) MONOCYTES RELATIVE PERCENT 9 % (BEAKER) (test code = 431) EOSINOPHILS RELATIVE PERCENT 3 % (BEAKER) (test code = 432) BASOPHILS RELATIVE PERCENT 0 % (BEAKER) (test code = 437) NEUTROPHILS ABSOLUTE COUNT 4.00 K/ L 1.78-5.38 (BEAKER) (test code = 670) LYMPHOCYTES ABSOLUTE COUNT 1.76 K/ L 1.32-3.57 (BEAKER) (test code = 414) MONOCYTES ABSOLUTE COUNT (BEAKER) 0.58 K/ L 0.30-0.82 (test code = 415) EOSINOPHILS ABSOLUTE COUNT 0.20 K/ L 0.04-0.54 (BEAKER) (test code = 416) BASOPHILS ABSOLUTE COUNT (BEAKER) 0.02 K/ L 0.01-0.08 (test code = 417) IMMATURE GRANULOCYTES-RELATIVE 1 % 0-1 PERCENT (BEAKER) (test code = 2801) BASIC METABOLIC [id number] 19:04:00 Test Item Value Reference Range Interpretation Comments SODIUM (BEAKER) 138 meq/L 136-145 (test code = 381) POTASSIUM (BEAKER) 4.3 meq/L 3.5-5.1 Specimen slightly (test code = 379) hemolyzed CHLORIDE (BEAKER) 108 meq/L 98-107 H (test code = 382) CO2 (BEAKER) (test 22 meq/L 22-29 code = 355) BLOOD UREA NITROGEN 10 mg/dL 7-21 (BEAKER) (test code = 354) CREATININE (BEAKER) 0.87 mg/dL 0.57-1.25 Specimen slightly (test code = 358) hemolyzed GLUCOSE RANDOM 75 mg/dL 70-105 (BEAKER) (test code = 652) CALCIUM (BEAKER) 8.5 mg/dL 8.4-10.2 (test code = 697) EGFR (BEAKER) (test 91 mL/min/1.73 ESTIMA DAISY GFR IS code = 1092) sq m NOT ACCURATE CREATININE CLEARANCE IN PREDICTING GLOMERULAR FILTRATION RATE . ESTIMATED GFR I S NOT APPLICABLE FOR DIALYSIS PATIEN TS. HEMOGLOBIN AND [id number] 18:48:00 Test Item Value Reference Range Interpretation Comments HEMOGLOBIN (BEAKER) (test code = 11.4 GM/DL 13.7-17.5 L 410) HEMATOCRIT (BEAKER) (test code = 34.9 % 40.1-51.0 L 411)
[2021-12-10] MEDS ORDERED: ONDANSETRON 4 MG/2 ML VIAL ONE ×2 (05:00→11:00)
[2021-12-10] MEDS ORDERED: MORPHINE 4 MG/ML SYR ONE ×2 (05:00→11:00)
[2021-12-10] MEDS ORDERED: NA CHLORIDE 0.9% 500 ML ONE (05:00)
[2021-12-10] MEDS ORDERED: ALBUTEROL 2.5 MG/3 ML NEB SOL ONE (05:00)
[2021-12-10 05:02] LABS: Hematocrit 41.6 % (39.6-49.0); Lymphocytes % 18.5 % (15.3-44.8); MPV 7.7 fL (7.6-11.3); RBC Red Blood Cell Count 4.96 M/uL (4.33-5.43)
[2021-12-10 05:06] LABS: Protime INR 0.97
[2021-12-10 05:24] LABS: ALT/SGPT 26 U/L (12-78); AST/SGOT 13 U/L (15-37); Albumin 3.3 g/dL (3.4-5.0); Alkaline Phosphatase 86 U/L (45-117); BUN Blood Urea Nitrogen 13 mg/dL (7-18); Bicarbonate 26 mmol/L (21-32); Bilirubin Total 0.3 mg/dL (0.2-1.0); Glucose Level 109 mg/dL (74-106); Magnesium 2.2 mg/dL (1.8-2.4); NT PRO-BNP 27 pg/mL (<125); Potassium 4.1 mmol/L (3.5-5.1); Protein, Total 7.4 g/dL (6.4-8.2); Sodium Level 138 mmol/L (136-145); Troponin High Sensitivity 9.4 pg/mL (<58.9)
[2021-12-10 05:38] LABS: Bilirubin Direct < 0.1 mg/dL (0-0.2); SARS-COV-2 RT PCR NEGATIVE (NEGATIVE)
[2021-12-10] MEDS ORDERED: Acetylcysteine 6000mg/30mL IV ONE (09:18)
[2021-12-10] MEDS ORDERED: NA CHLORIDE 0.9% 1,000 ML ONE (09:18)
[2021-12-10 09:51] LABS: Urine Blood Negative (Negative); Urine Glucose Negative (Negative); Urine Protein Negative (Negative)
--- NOTE | 2021-12-10 10:39 | RAD REPORT ---
EXAM DESCRIPTION: CT - Abdomen Pelvis W Contrast - 12/10/2021 10:19 am CLINICAL HISTORY: Abdominal pain COMPARISON: 2019 TECHNIQUE: Computed axial tomography of the abdomen pelvis was obtained. 85 cc Isovue-300 was admini stered intravenously. Oral contrast was not requested which limits evaluation of bowel. All CT scans are performed using dose optimization technique as appropriate and may include automated exposure control or mA/KV adjustment according to patient size. FINDINGS: Clinical history states hernia repair. Presumably this is ventral hernia repair. Small magnus unt of fluid is present within the anterior subcutaneous fat near midline mid abdomen. There is a 5 m illimeter defect within the abdominal wall at this level. Posterior to this is fluid collection measu ring 7 x 2 centimeters which abuts the posterior aspect of the abdominal wall. It contains an air liat ble. Postsurgical changes involve the esophagus/ stomach. Liver, spleen, pancreas, adrenals and kidneys unremarkable. Small amount of air within the bladder. Diverticula stem from the colon without evidence diverticulitis. IMPRESSION: Small amount of fluid within the anterior subcutaneous fat mid abdomen likely postsurgic al in nature and not significant. 7 x 2 centimeter fluid collection which abuts the posterior aspect of the abdominal wall at this leve l probably small hematoma. The air bubble would be the sequela of the recent surgery. Another conside ration is that the fluid collection is infected. This is probably less likely and should be correlate d clinically. Followup imaging be obtained for re-evaluation. . Air bubble within the bladder probably secondary to recent instrumentation. Infection can have this a ppearance but is probably less likely and should be correlated clinically
--- NOTE | 2021-12-10 10:43 | RAD REPORT ---
EXAM DESCRIPTION: CT - Chest For Pe Angio - 12/10/2021 10:19 am CLINICAL HISTORY: Chest pain TECHNIQUE: Dynamically enhanced axial 3 mm thick images of the chest were obtained during administra tion of <100> mL Isovue 370 IV contrast. Coronal and oblique reconstruction images were generated and reviewed. Exam utilizes a protocol for optimal evaluation of pulmonary arterial tree. Maximum intensity projections 3D imaging was utilized All CT scans are performed using dose optimization technique as appropriate and may include automated exposure control or mA/KV adjustment according to patient size. FINDINGS: A pulmonary embolus is not seen. A thoracic aortic aneurysm is not noted. A pleural effusion is not seen. A pericardial effusion is not seen. A lung consolidation is not present. IMPRESSION: Negative for a pulmonary embolism.
--- NOTE | 2021-12-10 11:12 | EDPHYS ---
Physician Documentation [facility] Name: Joey Spaulding Age: 56 yrs Sex: Male : 1965 Arrival Date: 12/10/2021 Time: 04:15 Bed 14 Private MD: ED Physician Augustus Hogan HPI: 12/10 04:53 This 56 yrs old Male presents to ER via Wheelchair with complaints of Breathing mh7 Difficulty. 04:53 The patient has shortness of breath at rest. mh7 04:53 Onset: The symptoms/episode began/occurred today. Duration: The symptoms are mh7 continuous, and are unchanged since they started. The patient's shortness of breath is aggravated by nothing, is alleviated by nothing. 04:53 Associated signs and symptoms: Pertinent negatives: chest pain, non-productive cough, mh7 productive cough, diaphoresis, dizziness, fever, hemoptysis, loss of consciousness, nausea, numbness in extremities, visual changes, vomiting. 04:53 Severity of symptoms: At their worst the symptoms were moderate today, in the emergency mh7 department the symptoms are unchanged. States he had an abdominal hernia repair at the end of last month and had been doing well until this morning. He reports pain in his right upper back area and breathing difficulty. Denies fever, cough, chest pain, abdominal pain, nausea, vomiting, diarrhea, dizziness, numbness/tingling, or weakness.. Historical: - Allergies: 04:32 No Known Allergies; bb - Home Meds: 04:32 aspirin 81 mg Oral chew [Active]; losartan Oral [Active]; pravastatin Oral [Active]; bb pantoprazole oral [Active]; - PMHx: 04:32 CAD; Hyperlipidemia; Hypertension; Boateng's Esophagus; bb - PSHx: 04:32 Appendectomy; Heart stents; ventral hernia repair; esophageal resection; bb 04:41 lap band with subsequent removal of lap band; bb - Immunization history:: Pfizer x 3. - Social history:: Smoking status: Patient/guardian denies using tobacco, the patient reports quitting approximately 15 years ago. ROS: 04:53 Constitutional: Negative for fever, chills, and weight loss, Eyes: Negative for injury, mh7 pain, redness, and discharge, ENT: Negative for injury, pain, and discharge, Neck: Negative for injury, pain, and swelling, Cardiovascular: Negative for chest pain, palpitations, and edema, Abdomen/GI: Negative for abdominal pain, nausea, vomiting, diarrhea, and constipation, : Negative for injury, bleeding, discharge, and swelling, MS/Extremity: Negative for injury and deformity, Skin: Negative for injury, rash, and discoloration, Neuro: Negative for headache, weakness, numbness, tingling, and seizure, Psych: Negative for depression, anxiety, suicide ideation, homicidal ideation, and hallucinations, Allergy/Immunology: Negative for hives, rash, and allergies, Endocrine: Negative for neck swelling, polydipsia, polyuria, polyphagia, and marked weight changes, Hematologic/Lymphatic: Negative for swollen nodes, abnormal bleeding, and unusual bruising. Exam: 04:53 Head/Face: Normocephalic, atraumatic. Eyes: Pupils equal round and reactive to light, mh7 extra-ocular motions intact. Lids and lashes normal. Conjunctiva and sclera are non-icteric and not injected. Cornea within normal limits. Periorbital areas with no swelling, redness, or edema. Neck: Trachea midline, no thyromegaly or masses palpated, and no cervical lymphadenopathy. Supple, full range of motion without nuchal rigidity, or vertebral point tenderness. No Meningismus. Chest/axilla: Normal chest wall appearance and motion. Nontender with no deformity. No lesions are appreciated. Cardiovascular: Regular rate and rhythm with a normal S1 and S2. No gallops, murmurs, or rubs. Normal PMI, no JVD. No pulse deficits. 04:53 Abdomen/GI: Soft, non-tender, with normal bowel sounds. No distension or tympany. No guarding or rebound. No evidence of tenderness throughout. Back: No spinal tenderness. No costovertebral tenderness. Full range of motion. Skin: Warm, dry with normal turgor. Normal color with no rashes, no lesions, and no evidence of cellulitis. MS/ Extremity: Pulses equal, no cyanosis. Neurovascular intact. Full, normal range of motion. Neuro: Awake and alert, GCS 15, oriented to person, place, time, and situation. Cranial nerves II-XII grossly intact. Motor strength 5/5 in all extremities. Sensory grossly intact. Cerebellar exam normal. Normal gait. Psych: Awake, alert, with orientation to person, place and time. Behavior, mood, and affect are within normal limits. 04:53 Constitutional: The patient appears alert, awake, in obvious distress, mildly distressed, uncomfortable. 04:53 Respiratory: 04:53 Respiratory: mild respiratory distress is noted, Respirations: prolonged exhalation, that is mild, Breath sounds: decreased breath sounds, that are mild, are located in both bases, rhonchi, that are mild, are scattered, Respiratory rate: 22 10:24 ECG was reviewed by the Attending Physician. [facility] Vital Signs: 04:30 BP 158 / 86; Pulse 76; Resp 22 S; Temp 99.3(O); Pulse Ox 97% on R/A; Weight 117.93 kg bb (R); Height 5 ft. 6 in. (167.64 cm) (R); Pain 8/10; 06:18 BP 131 / 76; Pulse 78; Resp 19; Pulse Ox 95% on R/A; sm5 07:00 BP 146 / 84; Pulse 71; Resp 24; Pulse Ox 98% ; bp 08:30 BP 119 / 59; Pulse 69; Resp 17; Pulse Ox 100% ; bp 09:28 BP 111 / 60; Pulse 71; Resp 28; Pulse Ox 97% ; bp 11:05 BP 124 / 72; Pulse 73; Resp 16; Pulse Ox 95% ; bp 04:30 Body Mass Index 41.96 (117.93 kg, 167.64 cm) bb MDM: 07:29 Patient medically screened. [facility] 09:04 Data reviewed: vital signs, nurses notes. [facility] 11:07 Physician consultation: deny pop with results, will see , salvatore , [facility] , use incentive spirometer. 12/10 04:41 Order name: Basic Metabolic Panel; Complete Time: 05:41 12/10 04:41 Order name: CBC with Diff; Complete Time: 05:34 12/10 04:41 Order name: LFT's; Complete Time: 05:41 7 12/10 04:41 Order name: Magnesium; Complete Time: 05:41 12/10 04:41 Order name: NT PRO-BNP; Complete Time: 05:41 7 12/10 04:41 Order name: PT-INR; Complete Time: 05:34 7 12/10 04:41 Order name: Troponin HS; Complete Time: 05:41 [facility] 12/10 04:41 Order name: COVID-19/FLU A+B (Document "Date of Onset" if Symptomatic); Complete Time: [facility] 05:41 12/10 04:42 Order name: Blood Culture Adult (2) [facility] 12/10 05:55 Order name: CREATININE WHOLE BLOOD; Complete Time: 05:58 [facility] 12/10 09:03 Order name: Lipase; Complete Time: 10:23 [facility] 12/10 09:51 Order name: Urine Dipstick-Ancillary; Complete Time: 10:23 [facility] 12/10 11:07 Order name: Urine Culture [facility] 12/10 04:41 Order name: XRAY Chest (1 view) [facility] 12/10 04:55 Order name: CT Chest For PE Angio [facility] 12/10 07:05 Order name: US Extremity Venous W Compression Tuan [facility] 12/10 08:05 Order name: INCENTIVE SPIROMETRY [facility] 12/10 08:43 Order name: CT Chest For PE Angio; Complete Time: 10:46 [facility] 12/10 08:43 Order name: CT Abd/Pelvis - IV Contrast Only; Complete Time: 10:46 [facility] 12/10 04:41 Order name: EKG; Complete Time: 04:42 [facility] 12/10 04:41 Order name: Cardiac monitoring; Complete Time: 04:50 [facility] 12/10 04:41 Order name: EKG - Nurse/Tech; Complete Time: 04:50 [facility] 12/10 04:41 Order name: IV Saline Lock; Complete Time: 04:50 [facility] 12/10 04:41 Order name: Labs collected and sent; Complete Time: 04:50 [facility] 12/10 04:41 Order name: O2 Per Protocol; Complete Time: 04:50 [facility] 12/10 04:41 Order name: O2 Sat Monitoring; Complete Time: 04:50 [facility] 12/10 09:03 Order name: Urine Dipstick-Ancillary (obtain specimen); Complete Time: 10:07 [facility] 12/10 11:12 Order name: PO challenge; Complete Time: 11:23 [facility] EC:24 Rate is 75 beats/min. Rhythm is regular. QRS [place] is Normal. [place] interval is normal. QRS [place] interval is normal. QT interval is normal. No Q waves. T waves are Normal. No ST changes noted. Clinical impression: Normal ECG and No evidence of ischemia. Interpreted by me. Reviewed by me. Administered Medications: 05:04 Drug: morphine 4 mg Route: IVP; Site: right forearm; sm5 10:08 Follow up: Response: Pain is decreased bp 05:04 Drug: Zofran (Ondansetron) 4 mg Route: IVP; Site: right forearm; sm5 10:07 Follow up: Response: No adverse reaction bp 05:04 Drug: NS 0.9% 500 ml Route: IV; Rate: bolus; Site: right forearm; sm5 05:11 Drug: Albuterol 2.5 mg Route: Inhalation; sm5 08:50 Drug: Mucomyst - Acetylcysteine 600 mg Route: PO; bp 10:07 Follow up: Response: No adverse reaction bp 08:50 Drug: NS 0.9% 1000 ml Route: IV; Rate: 1 bolus; Site: right antecubital; bp 11:52 Follow up: IV Status: Completed infusion; IV Intake: 1000ml bp 10:45 Drug: morphine 4 mg Route: IVP; Site: right forearm; bp 11:05 Follow up: Response: Pain is decreased bp 10:45 Drug: Zofran (Ondansetron) 4 mg Route: IVP; Site: right forearm; bp 11:05 Follow up: Response: No adverse reaction bp 11:32 Drug: Rocephin (cefTRIAXone) 1 grams Route: IV; Rate: per protocol; Site: right forearm;bp 11:51 Follow up: IV Status: Completed infusion; IV Intake: 100ml bp 11:32 Drug: Bactrim (trimethoprim-sulfamethoxazole) (160 mg-800 mg (DS) 1 tablet Route: PO; bp 11:51 Follow up: Response: No adverse reaction bp 11:32 Drug: Valium (diazepam) 5 mg Route: PO; bp 11:51 Follow up: Response: No adverse reaction bp Disposition Summary: 12/10/21 11:11 Discharge Ordered Location: Home [place] Problem: new malachi Symptoms: have improved malachi Condition: Stable malachi Diagnosis - Dyspnea [place] - Atelectasis mal[place] - Abdominal pain, Generalized malachi - Pleurisy - right [place] - Other acute postprocedural pain malachi Followup: mal[place] - With: Private Physician - When: 2 - 3 days - Reason: Recheck today's complaints, Continuance of care, Re-evaluation by your physician Discharge Instructions: - Discharge Summary Sheet malachi - Abdominal Pain, Adult malachi - Atelectasis, Adult mal[place] - How to Use an Incentive Spirometer [place] - Abdominal Pain, Adult, [id number] malachi - Pleurisy [facility] Forms: - Medication Reconciliation Form [facility] - Thank You Letter malachi - Antibiotic Education malachi - Prescription Opioid Use [facility] Prescriptions: - Pepcid 20 mg Oral Tablet - take 1 tablet by ORAL route every 12 hours for 10 days; 20 tablet; Refills: 0, [facility] Product Selection Permitted - Valium 5 mg Oral Tablet - take 1 tablet by ORAL route every 8 hours As needed; 20 tablet; Refills: 0, [facility] Product Selection Permitted - Bactrim DS 800-160 mg Oral Tablet - take 1 tablet by ORAL route every 12 hours for 10 days; 20 tablet; Refills: 0, [facility] Product Selection Permitted Signatures: Dispatcher [employer] Augustus Kong MD MD cha Ballard, Brenda, RN RN bb Adebayo Sutherland RN RN bp Holmes, Maurice, MD MD [facility] Kimberly Kam RN RN sm5
--- NOTE | 2021-12-10 11:12 | ER ---
Nurse's Notes [facility] Name: Joey Spaulding Age: 56 yrs Sex: Male : 1965 Arrival Date: 12/10/2021 Time: 04:15 Bed 14 Private MD: Diagnosis: Dyspnea;Atelectasis;Abdominal pain, Generalized;Pleurisy-right;Other acute postprocedural pain Presentation: 12/10 04:30 Chief complaint: Patient states: he had a ventral hernia repair December 01 at [facility] and bb was doing fine but woke up suddenly with difficulty breathing and pain with respirations pt states pain is 8/10. Coronavirus screen: difficulty breathing, Client presents with at least one sign or symptom that may indicate coronavirus-19. Ebola Screen: No symptoms or risks identified at this time. Initial Sepsis Screen: Does the patient meet any 2 criteria? No. Patient's initial sepsis screen is negative. Does the patient have a suspected source of infection? No. Patient's initial sepsis screen is negative. Risk Assessment: Do you want to hurt yourself or someone else? Patient reports no desire to harm self or others. Onset of symptoms was December 10, 2021. 04:30 Method Of Arrival: Wheelchair bb 04:30 Acuity: MARISA 2 bb Historical: - Allergies: 04:32 No Known Allergies; bb - Home Meds: 04:32 aspirin 81 mg Oral chew [Active]; losartan Oral [Active]; pravastatin Oral [Active]; bb pantoprazole oral [Active]; - PMHx: 04:32 CAD; Hyperlipidemia; Hypertension; Boateng's Esophagus; bb - PSHx: 04:32 Appendectomy; Heart stents; ventral hernia repair; esophageal resection; bb 04:41 lap band with subsequent removal of lap band; bb - Immunization history:: Pfizer x 3. - Social history:: Smoking status: Patient/guardian denies using tobacco, the patient reports quitting approximately 15 years ago. Screenin:37 Abuse screen: Denies threats or abuse. Denies injuries from another. Nutritional sm5 screening: No deficits noted. Tuberculosis screening: No symptoms or risk factors identified. Fall Risk None identified. Assessment: 05:00 General: Appears uncomfortable, Behavior is cooperative. Pain: Complains of pain in sm5 abdomen. Neuro: No deficits noted. Clifford Agitation-Sedation Scale (RASS): 0 - Alert and Calm Level of Consciousness is awake, alert, obeys commands, Oriented to person, place, time, situation. Cardiovascular: No deficits noted. Capillary refill < 3 seconds Patient's skin is warm and dry. Rhythm is sinus rhythm. Respiratory: Airway is patent Trachea midline Respiratory effort is even, labored. GI: Abdomen is obese, Reports lower abdominal pain. 06:20 Reassessment: No changes from previously documented assessment. Patient and/or family sm5 updated on plan of care and expected duration. Pain level reassessed. 07:00 Reassessment: RECD REPORT FROM [facility]. 56YO WM P/W ABDOMINAL PAIN S/P RECENT HERNIA bp REPAIR. 08:30 Reassessment: No changes from previously documented assessment. Patient and/or family bp updated on plan of care and expected duration. Pain level reassessed. 09:28 Reassessment: No changes from previously documented assessment. Patient and/or family bp updated on plan of care and expected duration. Pain level reassessed. U/S AND CT PE PENDING. 11:05 Reassessment: No changes from previously documented assessment. Patient and/or family bp updated on plan of care and expected duration. Pain level reassessed. U/S COMPLETED. 11:50 Reassessment: PT D/C HOME VIA W/C WITH FAMILY, DX WITH PLEURISY AND POST-PROCEDURAL bp PAIN. Vital Signs: 04:30 BP 158 / 86; Pulse 76; Resp 22 S; Temp 99.3(O); Pulse Ox 97% on R/A; Weight 117.93 kg bb (R); Height 5 ft. 6 in. (167.64 cm) (R); Pain 8/10; 06:18 BP 131 / 76; Pulse 78; Resp 19; Pulse Ox 95% on R/A; sm5 07:00 BP 146 / 84; Pulse 71; Resp 24; Pulse Ox 98% ; bp 08:30 BP 119 / 59; Pulse 69; Resp 17; Pulse Ox 100% ; bp 09:28 BP 111 / 60; Pulse 71; Resp 28; Pulse Ox 97% ; bp 11:05 BP 124 / 72; Pulse 73; Resp 16; Pulse Ox 95% ; bp 04:30 Body Mass Index 41.96 (117.93 kg, 167.64 cm) ED Course: 04:15 Patient arrived in ED. kz 04:31 Kimberly Kam, RN is Primary Nurse. sm5 04:32 Triage completed. bb 04:32 Jonathan Paul MD is Attending Physician. [facility] 04:32 Arm band placed on Patient placed in an exam room, on a stretcher, on cardiac rehabilitation specialist, bb on pulse oximetry. Family accompanied patient. 04:37 Inserted saline lock: 20 gauge in right forearm, using aseptic technique. Blood 5 collected. 04:50 COVID-19/FLU A+B (Document "Date of Onset" if Symptomatic) Sent. sm5 04:50 Basic Metabolic Panel Sent. sm5 04:50 CBC with Diff Sent. sm5 04:50 LFT's Sent. sm5 04:50 Magnesium Sent. sm5 04:50 NT PRO-BNP Sent. sm5 04:50 PT-INR Sent. sm5 04:50 Troponin HS Sent. sm5 05:48 CT Chest For PE Angio In Process Unspecified. EDMS 05:55 XRAY Chest (1 view) In Process Unspecified. EDMS 06:20 Patient has correct armband on for positive identification. Bed in low position. Call sm5 light in reach. Side rails up X2. Client placed on continuous cardiac and pulse oximetry monitoring. NIBP monitoring applied. 07:14 Primary Nurse role handed off by Kimberly Kam RN bp 07:14 Adebayo Sutherland, RN is Primary Nurse. bp 07:29 Attending Physician role handed off by Jonathan Paul MD malachi 07:29 Augustus Hogan MD is Attending Physician. malachi 10:07 CT Chest For PE Angio Sent. bp 10:07 CT Abd/Pelvis - IV Contrast Only Sent. bp 10:21 CT Chest For PE Angio In Process Unspecified. EDMS 10:21 CT Abd/Pelvis - IV Contrast Only In Process Unspecified. EDMS 10:40 US Extremity Venous W Compression Tuan Sent. bp 10:54 US Extremity Venous W Compression Tuan In Process Unspecified. EDMS 11:02 called and connected patients surgeon Dr. Farris [phone] Hogan for eb patient consultation. 11:50 No provider procedures requiring assistance completed. IV discontinued, intact, bp bleeding controlled, No redness/swelling at site. Pressure dressing applied. Administered Medications: 05:04 Drug: morphine 4 mg Route: IVP; Site: right forearm; sm5 10:08 Follow up: Response: Pain is decreased bp 05:04 Drug: Zofran (Ondansetron) 4 mg Route: IVP; Site: right forearm; sm5 10:07 Follow up: Response: No adverse reaction bp 05:04 Drug: NS 0.9% 500 ml Route: IV; Rate: bolus; Site: right forearm; sm5 05:11 Drug: Albuterol 2.5 mg Route: Inhalation; sm5 08:50 Drug: Mucomyst - Acetylcysteine 600 mg Route: PO; bp 10:07 Follow up: Response: No adverse reaction bp 08:50 Drug: NS 0.9% 1000 ml Route: IV; Rate: 1 bolus; Site: right antecubital; bp 11:52 Follow up: IV Status: Completed infusion; IV Intake: 1000ml bp 10:45 Drug: morphine 4 mg Route: IVP; Site: right forearm; bp 11:05 Follow up: Response: Pain is decreased bp 10:45 Drug: Zofran (Ondansetron) 4 mg Route: IVP; Site: right forearm; bp 11:05 Follow up: Response: No adverse reaction bp 11:32 Drug: Rocephin (cefTRIAXone) 1 grams Route: IV; Rate: per protocol; Site: right forearm;bp 11:51 Follow up: IV Status: Completed infusion; IV Intake: 100ml bp 11:32 Drug: Bactrim (trimethoprim-sulfamethoxazole) (160 mg-800 mg (DS) 1 tablet Route: PO; bp 11:51 Follow up: Response: No adverse reaction bp 11:32 Drug: Valium (diazepam) 5 mg Route: PO; bp 11:51 Follow up: Response: No adverse reaction bp Intake: 11:51 IV: 100ml; Total: 100ml. bp 11:52 IV: 1000ml; Total: 1100ml. bp Outcome: 11:11 Discharge ordered by . malachi 11:50 Discharged to home via wheelchair, with family. bp 11:50 Condition: stable 11:50 Discharge instructions given to patient, Instructed on discharge instructions, follow up and referral plans. Demonstrated understanding of instructions, follow-up care, medications, Prescriptions given X 3. 11:52 Patient left the ED. bp Signatures: Dispatcher [employer] EDIL Augustus Hogan MD MD cha Ballard, Brenda, RN RN bb Adebayo Sutherland, RN RN Lili Higgins Maurice, MD MD [id number] Kimberly Kam, DEEPA RN 5 Cora Jacinto
--- NOTE | 2021-12-10 11:18 | RAD REPORT ---
EXAM DESCRIPTION: USExtrem Venous W Compress Bil12/10/2021 10:52 am CLINICAL HISTORY: Leg swelling COMPARISON: 2019 FINDINGS: The common femoral, superficial femoral, popliteal and posterior tibial veins bilaterally are compressible and demonstrate augmentation. Doppler demonstrates good flow. Grayscale, color and spectral analysis performed on all vessels IMPRESSION: No evidence of deep venous thrombosis involving either lower extremity.
[2021-12-10] MEDS ORDERED: CEFTRIAXONE 1000 MG/VIAL ONE (11:31)
[2021-12-10] MEDS ORDERED: DIAZEPAM 5 MG TABLET ONE (11:31)
[2021-12-10] MEDS ORDERED: NA CHLORIDE 0.9% 100 ML IV ONE (11:31)
[2021-12-10] MEDS ORDERED: SMZ./TMP. 800/160 MG TABLET ONE (11:31)
[2021-12-10 12:05] VITALS: TEMP 99.3
[2021-12-10 12:13] VITALS: BP 124/72; O2SAT 95
--- NOTE | 2021-12-11 08:59 | EKG ---
Test Date: 2021-12-10 Test Time: 04:39:02 Wood Setter: BRIAN MEASUREMENT RESULTS: Intervals: Rate: 75 NE: 180 QRSD: 74 QT: 356 QTc: 397 [place]: P: 43 NE: 180 QRS: 1 T: -2 INTERPRETIVE STATEMENTS: Normal sinus rhythm Inferior infarct, age undetermined Abnormal ECG Compared to ECG 09/23/2014 09:41:08 Myocardial infarct finding now present Electronically Signed On 12-11-21 08:56:47 CDT by Pérez Santana
--- NOTE | 2021-12-11 14:58 | RAD REPORT ---
EXAM DESCRIPTION: Ander Single View12/10/2021 5:54 am CLINICAL HISTORY: The patient is 56 years old and is Male; SOB TECHNIQUE: Single view of the chest. COMPARISON: No relevant prior studies available. FINDINGS: Lungs: Mild right basilar subsegmental atelectasis. No pulmonary vascular congestion or consolidation. Pleural space: Unremarkable. No pneumothorax. Heart: The cardiac silhouette is enlarged versus artifact of AP technique. Mediastinum: Unremarkable. Bones/joints: Changes in the distal right clavicle are consistent with previous AC joint injury. No acute rib fracture. Upper abdomen: No free air in the visualized upper abdomen. IMPRESSION: 1. Mild right basilar subsegmental atelectasis. 2. No acute cardiopulmonary process identified. Electronically signed by: Cherri De La O MD 12/10/2021 6:20 AM CDT Due to temporary technical issues with the PACS/Fluency reporting system, reports are being signed by the in house radiologist without review as a courtesy to ensure prompt reporting. The interpreting r adiologist is fully responsible for the content of the report.
--- NOTE | 2021-12-11 15:01 | RAD REPORT ---
EXAM DESCRIPTION: CT - Chest For Pe Angio - 12/10/2021 6:39 am TECHNIQUE: Computerized tomographic angiography of the chest was performed after the IV injection of iodinated nonionic contrast including image processing. The image data was postprocessed using 2-d imensional multiplanar reformatted (MPR) and 3-dimensional (MIP and/or volume rendered) techniques. A utomated exposure control, adjustment of mA and/or kV according to patient size, or iterative reconst ruction dose optimization techniques were utilized. CLINICAL HISTORY: Shortness of breath COMPARISON: 04/14/2020. FINDINGS: Heart and pericardium: No pericardial effusion or thickening. Thoracic aorta: Normal. Pulmonary vasculature: There is limited evaluation of the pulmonary arteries due to suboptimal contra st enhancement. There is nondiagnostic evaluation of the branches beyond the right and left pulmonary arteries. Lymph nodes: No enlarged thoracic lymph nodes. Lungs: Bilateral lung base mosaic pattern attenuation may be related to combination dependent dupont es and edema. There is a calcified granuloma in the right lower lobe. Pleural space: No effusion, thickening, or pneumothorax. Musculoskeletal structures: No significant abnormality. Upper abdominal structures: No significant abnormality. IMPRESSION: Very limited nondiagnostic evaluation of the pulmonary arteries. No large emboli are see n within the right and left pulmonary arteries. Bilateral posterior lung base mosaic pattern attenuation favored to be related to combination of depe ndent changes and atelectasis.. Electronically signed by: Sarah Paul MD 12/10/2021 6:29 AM CDT Due to temporary technical issues with the PACS/Fluency reporting system, reports are being signed by the in house radiologist without review as a courtesy to ensure prompt reporting. The interpreting r adiologist is fully responsible for the content of the report.
== END 2021-12-10 11:52 | disposition home or self-care (01) ==
LOC: ER 04:12
DX: J98.11 Atelectasis (principal); R09.1 Pleurisy; G89.18 Other acute postprocedural pain; R10.84 Generalized abdominal pain; Z20.822 Contact with and (suspected) exposure to COVID-19
CPT/HCPCS: 96365; 96361; 93005; 87040 ×2; 87088; 85025; 87086; 80048; 36415; 83735; 85610; 82565; 80076; 81003; 84484; 83690; 83880; 0240U; 71275 ×2; 74177; 71045; 93970; 96375; 99285; Q9967 ×2; J0132; J7040; J7030; J2405 ×2

== ENCOUNTER → 2022-07-18 | Day surgery (SDC) | payer BC ==
--- NOTE | 2022-07-18 10:30 | RAD REPORT ---
EXAM DESCRIPTION: RAD - Abdomen 1 View (KUB) - 07/18/2022 9:26 am CLINICAL HISTORY: N20.0 Pain COMPARISON: Abdomen Pelvis W Contrast dated 12/10/2021 FINDINGS: The bowel gas pattern is non-obstructive. No evidence of free air or pneumatosis. No suspi cious calcifications. No significant bony findings. IMPRESSION: Negative examination.
== END ==
LOC: RAD 08:45
PROVIDERS: ATTEND Urology
DX: N20.0 Calculus of kidney (principal)
CPT/HCPCS: 74018